=== PATIENT | female | born 1980 | race Caucasian/White ===

== ENCOUNTER → 2017-07-30 | Outpatient (CLI) | payer MEDICAID ==
[2017-07-30 13:11] LABS: Basophils # (A) 0.1 k/uL (0-0.2); Basophils % (A) 1 %; Eosinophils # (A) 0.1 k/uL (0-0.7); Eosinophils % (A) 2 %; HCT 39.9 % (34.0-46.0); HGB 12.5 gm/dL (11.4-16.0); Lymphocytes # (A) 2.2 k/uL (1.0-4.8); Lymphocytes % (A) 35 %; MCH 29.5 pg (25.0-35.0); MCHC 31.4 g/dL (31.0-37.0); MCV 93.9 fL (80.0-100.0); Mean Platelet Volume 6.8; Monocytes # (A) 0.4 k/uL (0-1.0); Monocytes % (A) 6 %; Neutrophils # (A) 3.4 k/uL (1.3-7.7); Neutrophils % (A) 54 %; Platelet Count 383 k/uL (150-450); RBC 4.26 m/uL (3.80-5.40); RDW 13.6 % (11.5-15.5); WBC 6.3 k/uL (3.8-10.6)
[2017-07-30 13:29] LABS: ALT 25 U/L (9-52); AST 19 U/L (14-36); Albumin 4.1 g/dL (3.5-5.0); Alkaline Phosphatase 76 U/L (38-126); Anion Gap 9 mmol/L; Blood Urea Nitrogen 8 mg/dL (7-17); Calcium 9.3 mg/dL (8.4-10.2); Carbon Dioxide 25 mmol/L (22-30); Chloride 107 mmol/L (98-107); Cholesterol 193 mg/dL (<200); Glucose 97 mg/dL (74-99); HDL Cholesterol 81 mg/dL (40-60); LDL Cholesterol,Calculated 95 mg/dL (0-99); Potassium 4.9 mmol/L (3.5-5.1); Sodium 141 mmol/L (137-145); Total Bilirubin 0.7 mg/dL (0.2-1.3); Total Protein 6.8 g/dL (6.3-8.2); Triglycerides 84 mg/dL (<150)
--- NOTE | 2017-07-30 13:35 | XR ---
EXAMINATION TYPE: XR chest 2V DATE OF EXAM: 07/30/2017 COMPARISON: NONE HISTORY: Chest pain TECHNIQUE: Frontal and lateral views of the chest are obtained. FINDINGS: Incidental note is made of an azygos lobe. There is no focal air space opacity, pleural eff usion, or pneumothorax seen. The cardiac silhouette size is within normal limits. The osseous stru ctures are intact. IMPRESSION: No acute cardiopulmonary process.
[2017-07-30 13:44] LABS: T4, Free (Free Thyroxine) 1.22 ng/dL (0.78-2.19)
[2017-07-30 22:55] LABS: Hemoglobin A1C 5.4 % (4.0-6.0)
== END | disposition home or self-care (01) ==
LOC: LABWHC1 12:11
PROVIDERS: ATTEND Family Medicine
DX: R07.89 Other chest pain (principal); E66.9 Obesity, unspecified; R00.2 Palpitations
CPT/HCPCS: 36415; 71046; 80053; 80061; 83036; 84439; 84443; 85025

== ENCOUNTER → 2017-08-11 | Outpatient (CLI) | payer OTHER ==
--- NOTE | 2017-08-11 16:42 | XR ---
EXAMINATION TYPE: XR foot complete RT DATE OF EXAM: 08/11/2017 CLINICAL HISTORY: Right foot pain after injury. TECHNIQUE: Frontal, lateral, and oblique images of the right foot are obtained. COMPARISON: None FINDINGS: There is no acute fracture/dislocation evident in the right foot. The joint spaces in the right foot appear within normal limits. The overlying soft tissue appears unremarkable. IMPRESSION: There is no acute fracture or dislocation in the right foot.
== END | disposition home or self-care (01) ==
LOC: LABWHC1 15:47
PROVIDERS: ATTEND Emergency Medicine
DX: S90.31XA Contusion of right foot, initial encounter (principal); N92.0 Excessive and frequent menstruation with regular cycle
CPT/HCPCS: 81025

== ENCOUNTER → 2018-02-16 | Outpatient (CLI) | payer OTHER ==
--- NOTE | 2018-02-16 17:42 | XR ---
EXAMINATION TYPE: XR tibia fibula RT DATE OF EXAM: 02/16/2018 COMPARISON: None HISTORY: Pain TECHNIQUE: 4 views FINDINGS: Tibia and fibula appear intact. I see no fracture nor dislocation. Joint spaces are normal. IMPRESSION: Negative right tibia and fibula exam.
== END | disposition home or self-care (01) ==
LOC: RADXRMAIN 17:20
PROVIDERS: ATTEND Emergency Medicine
DX: S80.11XA Contusion of right lower leg, initial encounter (principal)

== ENCOUNTER → 2018-02-19 | Outpatient (CLI) | payer OTHER ==
--- NOTE | 2018-02-19 15:53 | XR ---
EXAMINATION TYPE: XR knee complete RT DATE OF EXAM: 02/19/2018 CLINICAL HISTORY: Right knee pain and burning after injury 2 days ago. TECHNIQUE: Three views of the right knee are obtained. COMPARISON: Right leg x-ray from 3 days ago. FINDINGS: There is no acute fracture/dislocation evident in right knee. The tri-compartment joint s paces appear within normal limits. The overlying soft tissue appears unremarkable. IMPRESSION: There is no acute fracture or dislocation in the right knee.
== END ==
LOC: RADXRMAIN 15:32
PROVIDERS: ATTEND Emergency Medicine
DX: S80.11XD Contusion of right lower leg, subsequent encounter (principal)

== ENCOUNTER → 2018-02-27 | Outpatient (CLI) | payer OTHER ==
--- NOTE | 2018-02-27 13:02 | XR ---
EXAMINATION TYPE: XR knee complete RT DATE OF EXAM: 02/27/2018 CLINICAL HISTORY: Right knee pain and burning for one week TECHNIQUE: Three views of the right knee are obtained. COMPARISON: None. FINDINGS: There is no acute fracture/dislocation evident in right knee. The tri-compartment joint s paces appear within normal limits. The overlying soft tissue appears unremarkable. IMPRESSION: There is no acute fracture or dislocation in the right knee.
== END ==
LOC: RADXRMAIN 12:33
PROVIDERS: ATTEND Emergency Medicine
DX: S80.11XD Contusion of right lower leg, subsequent encounter (principal)

== ENCOUNTER → 2018-03-23 | Outpatient (CLI) | payer OTHER ==
--- NOTE | 2018-03-23 22:44 | MR ---
EXAMINATION TYPE: MR knee RT wo con DATE OF EXAM: 03/23/2018 COMPARISON: Plain film 02/27/2018 HISTORY: Rt knee pain TECHNIQUE: Multiplanar, multisequence imaging of the right knee is performed without IV contrast. FINDINGS: MEDIAL MENISCUS: Anterior and posterior horns are intact without tear. LATERAL MENISCUS: Anterior and posterior horns are intact without tear. CRUCIATE LIGAMENTS: The anterior and posterior cruciate ligaments are intact and unremarkable. COLLATERAL LIGAMENTS: The medial collateral ligament and lateral collateral ligament complex are inta ct and unremarkable. EXTENSOR MECHANISM: Visualized quadriceps and patellar tendons are intact. EFFUSION: No significant suprapatellar joint effusion. POPLITEAL CYST: No popliteal/davis cyst. TRICOMPARTMENT SPACES: Maintained CARTILAGE: Normal BONE MARROW SIGNAL: No focal abnormal marrow signal is appreciated. OTHER: No additional significant abnormality is appreciated. IMPRESSION: No evident internal derangement.
== END | disposition home or self-care (01) ==
LOC: RADMRIMAIN 21:22
PROVIDERS: ATTEND Emergency Medicine
DX: S80.11XD Contusion of right lower leg, subsequent encounter (principal); S81.801D Unspecified open wound, right lower leg, subsequent encounter

== ENCOUNTER → 2020-01-26 | Outpatient (CLI) | payer SELFPAY ==
[2020-01-26 16:32] VITALS: BP 130/79; PULSE 80; RESP 16; TEMP 98.5
--- NOTE | 2020-01-26 16:41 | P.GSHP ---
History of Present Illness H&P Date: 01/26/20 Chief Complaint: abnormal lesion left breast UOQ don ultrasound Arabella is a 39 year old white female seen in consultation for Dr. Carbajal. She noted a mass in her left breast in the upper outer quadrant approximately a month ago. This has fluctuated in size with her menstrual period. It is tender. She has not noted any other lumps masses or nodules. She had an ultrasound of her left breast performed on [id number]. This revealed a 2.7 x 3.6 cm irregular lesion in the upper outer quadrant area of the left breast. Additionally at the 1 o'clock position there was a 0.7 cm lesion. A second lesion at 1:00 which was 1.5 x 0.9 cm in size was also noted the 2 lesions at 1:00 was felt to most likely represent cyst. The lesion at 2:00 was felt it may be a complex cyst or solid lesion and attempted aspiration or biopsy was recommended. The patient denies any nipple discharge or skin changes. No nipple discharge or skin changes of concern. She does not complain of any recent trauma or infection in the breast. Caffeine: 2 cups of coffee per day Nicotine: Negative Theophylline: rare Family history: Negative Hormonal history: Menarche: 10 G0 periods irregular/ last period 3 weeks ago BCP: to regulate periods, less than 1 year hormones: none Surgical history: Negative Medical history: afib/v tach periodic Social History: Nicotine: Negative Alcohol: Negative Drugs: Negative - Constitutional Constitutional: Denies chills, Denies fever - EENT Eyes: denies blurred vision, denies pain Ears: deny: decreased hearing, tinnitus Ears, nose, mouth and throat: Denies headache, Denies sore throat - Breasts Breasts: bilateral: as per HPI - Cardiovascular Comment: atrial fib/ v tach intermittent Cardiovascular: Reports shortness of breath, Denies chest pain - Respiratory Respiratory: Denies cough, Denies 7 - Gastrointestinal Gastrointestinal: Reports diarrhea, Denies abdominal pain, Denies nausea, Denies vomiting - Genitourinary (Female) Comment: UTI in the past - Menstruation Menstruation: Reports cycle variable - Musculoskeletal Musculoskeletal: Denies myalgias - Integumentary Integumentary: Denies pruritus, Denies rash - Neurological Neurological: Denies numbness, Denies weakness - Psychiatric Psychiatric: Reports anxiety - Endocrine Endocrine: Reports fatigue, Reports weight change - Hematologic/Lymphatic Comment: none - Allergic/Immunologic Allergic/Immunologic: Reports seasonal allergies Surgical - Exam BMI 33.2 - General well developed, well nourished, no distress, obese - Eyes normal ocular movement - ENT no hearing loss, no congestion - Neck no masses, trachea midline - Respiratory normal respiratory effort, clear to auscultation - Cardiovascular Rhythm: regular Heart Sounds: normal: S1, S2 - Abdomen Abdomen: soft, non tender, no guarding, no rigid, no rebound - Integumentary normal turgor - Neurologic no disoriented, no combative - Musculoskeletal normal gait, normal posture - Psychiatric oriented to time, oriented to person, oriented to place, speech is normal, memory intact breast exam: BRA: 38C inspection: bilateral grade 1 ptosis Patient: Right breast: Multi-positional exam fibrocystic changes, no dominant masses or nodules of concern, dense breast tissue Right axilla: No adenopathy of concern Left breast: Multi-positional exam fibrocystic changes, no dominant masses or nodules of concern, fibrocystic changes Left axilla: No adenopathy of concern Results Ultrasound results reviewed Assessment and Plan Assessment: Impression: 1. Abnormal left breast ultrasound 2. Patient concern about postoperative change in the left breast which has largely resolved 3. Fibrocystic breast changes 4. Anxiety 5. History of atrial fibrillation/V. tach Plan: 1. Bilateral mammogram 2. Repeat left breast ultrasound of lesion of concern persist in the left breast upper outer quadrant ultrasound-guided core aspiration versus biopsy 3. Consider medical clearance clearance prior to biopsy CC: Dr. Carbajal encounter 30 minutes, > 50% of time in planning and counselling
== END | disposition home or self-care (01) ==
LOC: MERGE 13:40 → WWCWWP 16:13
PROVIDERS: ATTEND Surgery
DX: Z53.9 Procedure and treatment not carried out, unspecified reason (principal)

== ENCOUNTER → 2020-02-08 | Outpatient (CLI) | payer OTHER ==
--- NOTE | 2020-02-08 14:16 | MM ---
Reason for exam: clinical finding. Indicated problem(s): lump or thickening in the left breast. Physical Findings: Nurse did not find any significant physical abnormalities on exam. MG 3D Diag Mammo W/Cad BREANA Bilateral CC and MLO view(s) were taken. The breast tissue is extremely dense which could obscure a lesion on mammography. Finding: There is a 5 mm equal density (isodense) mass in the upper outer quadrant of the left breast. These results were verbally communicated with the patient and result sheet given to the patient on 02/08/20. ASSESSMENT: Incomplete: need additional imaging evaluation, BI-RAD 0 RECOMMENDATION: Ultrasound of the left breast.
--- NOTE | 2020-02-08 14:18 | USB ---
Reason for exam: additional evaluation requested from abnormal screening. US Breast LT Left complete breast ultrasound includes all four quadrants, the retroareolar region and axilla. Finding demonstrates three cystic lesions measuring 0.7 x 0.5 x 0.8cm at 2 o'clock, 1.3 x 0.7 x 1.2cm at 2 o'clock and 1.8 x 1.0 x 2.2cm at 3 o'clock. These results were verbally communicated with the patient and result sheet given to the patient on 02/08/20. ASSESSMENT: Probably benign, BI-RAD 3 RECOMMENDATION: Follow-up diagnostic mammogram and ultrasound of the left breast in 6 months.
== END | disposition home or self-care (01) ==
LOC: RADMAMWWP 13:02
PROVIDERS: ATTEND Surgery
DX: N63.21 Unspecified lump in the left breast, upper outer quadrant (principal)
CPT/HCPCS: 77066; 76641; G0279; 77062

== ENCOUNTER → 2020-08-10 | Outpatient (CLI) | payer OTHER ==
[2020-08-10 12:51] VITALS: BP 122/87; PULSE 85; RESP 18; TEMP 98.9
--- NOTE | 2020-08-10 13:10 | P.PN ---
Subjective Progress Note Date: 08/10/20 Principal diagnosis: Fibrocystic breast changes Arabella is a 39 year old white female seen in consultation for Dr. Carbajal in January,.. She had noted a mass in her left breast in the upper outer quadrant approximately a month prior. This had fluctuated in size with her menstrual period. It was tender. She had not noted any other lumps masses or nodules. She had an ultrasound of her left breast performed on . This revealed a 2.7 x 3.6 cm irregular lesion in the upper outer quadrant area of the left breast. Additionally at the 1 o'clock position there was a 0.7 cm lesion. A second lesion at 1:00 which was 1.5 x 0.9 cm in size was also noted the 2 lesi ons at 1:00 was felt to most likely represent cyst. The lesion at 2:00 was felt it may be a complex cyst or solid lesion and attempted aspiration or biopsy was recommended. Patient had a bilateral mammogram performed on . This was felt to be incomplete there was a 5 mm equal density mass in the upper quadrant of the left breast and ultrasound was recommended. Repeat ultrasound of the left breast was performed and . This revealed 3 cystic lesions 2 at 2:00 and one at 3:00. The recommendation at that time was for repeat left breast mammogram and ultrasound in 6 months. The aspiration was therefore put on hold. The patient denies any nipple discharge or skin changes. No nipple discharge or skin changes of concern. She does not complain of any recent trauma or infection in the breast. Caffeine: 2 cups of coffee per day Nicotine: Negative chocolate: rare Family history: Negative Hormonal history: Menarche: 10 G0 periods irregular/ last period about 1 month ago BCP: to regulate periods, less than 1 year hormones: none Surgical history: Negative Medical history: afib/v tach periodic anxiety Social History: Nicotine: Negative Alcohol: Negative Drugs: Negative - Constitutional Constitutional: Denies chills, Denies fever - EENT Eyes: denies blurred vision, denies pain Ears: deny: decreased hearing, tinnitus Ears, nose, mouth and throat: Denies headache, Denies sore throat - Breasts Breasts: bilateral: as per HPI - Cardiovascular Comment: atrial fib/ v tach intermittent Cardiovascular: Reports shortness of breath, Denies chest pain - Respiratory Respiratory: Denies cough, - Gastrointestinal Gastrointestinal: Reports diarrhea, Denies abdominal pain, Denies nausea, Denies vomiting - Genitourinary (Female) Comment: UTI in the past - Menstruation Menstruation: Reports cycle variable - Musculoskeletal Musculoskeletal: Denies myalgias - Integumentary Integumentary: Denies pruritus, Denies rash - Neurological Neurological: Denies numbness, Denies weakness - Psychiatric Psychiatric: Reports anxiety - Endocrine Endocrine: Reports fatigue, Reports weight change gain - Hematologic/Lymphatic Comment: none - Allergic/Immunologic Allergic/Immunologic: Reports seasonal allergies Objective - Exam BMI 35 - Constitutional General appearance: Present: cooperative - EENT Eyes: Present: EOMI ENT: Present: hearing grossly normal - Neck Neck: Present: normal ROM - Respiratory Respiratory: bilateral: CTA - Cardiovascular Rhythm: regular Heart sounds: normal: S1, S2 - Integumentary Integumentary: Present: normal turgor - Musculoskeletal Musculoskeletal: Present: gait normal - Psychiatric Psychiatric: Present: A&O x's 3, appropriate affect, intact judgment & insight - Additional findings Additional findings: breast exam: BRA: 38C inspection: grade 1 ptosis bilateral palpation: right breast: multipositional exam no dominate masses or nodules of concern, I were cystic changes Right axilla: No adenopathy of concern Left breast: Positional exam no dominant masses or nodules of concern, fibrocystic changes, dry skin at the nipple areolar complex area different from the right side Left axilla: No adenopathy of concern Assessment and Plan Assessment: Impression: 1. Fibrocystic breast changes 2. Dry skin nipple areolar complex left breast 3. I have reviewed and discussed with her her mammogram and ultrasound reports from January 2020 4. A. fib/V. tach periodically Plan: 1. Left breast mammogram and ultrasound 2. Patient needs screening on the left nipple areolar complex and I will reevaluate this when she comes for her repeat left breast mammogram and ultrasound if this remains scaly would consider a skin biopsy to rule out Paget's disease 3. Probable perimenopausal, have discussed this with the patient CC: Dr. Carbajal Diagnoses: 1. Fibrocystic breast changes 2. Scaling of nipple areolar complex left breast Data reviewed: Review of results of mammogram and ultrasound order left breast mammogram and ultrasound
== END | disposition home or self-care (01) ==
LOC: WWCWWP 12:34
PROVIDERS: ATTEND Surgery
DX: N60.19 Diffuse cystic mastopathy of unspecified breast (principal)

== ENCOUNTER → 2020-08-24 | Outpatient (CLI) | payer OTHER ==
--- NOTE | 2020-08-24 11:58 | MM ---
Reason for exam: follow-up at short interval from prior study. Last mammogram was performed 7 months ago. Physical Findings: Nurse did not find any significant physical abnormalities on exam. MG 3D Diag Mammo W/Cad LT CC and MLO view(s) were taken of the left breast. Prior study comparison: February 08, 2020, bilateral MG 3d diag mammo w/cad BREANA. The breast tissue is heterogeneously dense. This may lower the sensitivity of mammography. No significant new findings when compared with previous films. These results were verbally communicated with the patient and result sheet given to the patient on 08/24/20. ASSESSMENT: Benign, BI-RAD 2 RECOMMENDATION: Routine screening mammogram of both breasts in 5 months. Back on schedule for January 2021
--- NOTE | 2020-08-24 12:00 | USB ---
Reason for exam: follow-up at short interval from prior study. US Breast Limited LT Left limited breast ultrasound including focal area of concern, retroareolar and axilla demonstrates a 7 x 4 x 8mm oval, cystic lesion at 1 o'clock, unchanged, a 7 x 4 x 7mm lobular, mixed lesion at 2 o'clock, smaller in size, short term follow up recommended and a 11 x 6 x 13mm oval, cystic lesion at 3 o'clock, smaller in size. These results were verbally communicated with the patient and result sheet given to the patient on 08/24/20. ASSESSMENT: Probably benign, BI-RAD 3 RECOMMENDATION: Ultrasound of the left breast in 3 months.
== END | disposition home or self-care (01) ==
LOC: RADMAMWWP 09:32
PROVIDERS: ATTEND Surgery
DX: R92.2 Inconclusive mammogram (principal)
CPT/HCPCS: 77065; 76642; G0279; 77061

== ENCOUNTER 2021-02-03 17:27 | Observation (INO) | payer OTHER ==
[2021-02-03] MEDS ORDERED: SODIUM CHLORIDE 0.9% 1,000 ML IV STA (18:42)
[2021-02-03 19:16] LABS: Basophils # (A) 0.1 k/uL (0-0.2); Basophils % (A) 0 %; Eosinophils # (A) 0.1 k/uL (0-0.7); Eosinophils % (A) 1 %; HCT 40.4 % (34.0-46.0); HGB 13.4 gm/dL (11.4-16.0); Lymphocytes % (A) 25 %; MCH 31.1 pg (25.0-35.0); MCHC 33.1 g/dL (31.0-37.0); MCV 93.9 fL (80.0-100.0); Mean Platelet Volume 7.4; Monocytes # (A) 0.5 k/uL (0-1.0); Monocytes % (A) 4 %; Neutrophils # (A) 8.3 k/uL (1.3-7.7); Neutrophils % (A) 69 %; Platelet Count 258 k/uL (150-450); RDW 13.7 % (11.5-15.5)
--- NOTE | 2021-02-03 19:24 | XR ---
EXAMINATION TYPE: XR chest 2V DATE OF EXAM: 02/03/2021 COMPARISON: 07/30/2017 HISTORY: Syncope TECHNIQUE: 2 views FINDINGS: Heart and mediastinum are normal. Lungs are clear. Diaphragm is normal. Bony thorax appears normal. IMPRESSION: Normal chest. No change.
[2021-02-03 19:27] LABS: ALT 28 U/L (4-34); AST 36 U/L (14-36); African American GFR (CKD) >90 (>60 ml/min/1.73 sqM); Albumin 4.3 g/dL (3.5-5.0); Alkaline Phosphatase 100 U/L (38-126); Anion Gap 8 mmol/L; Blood Urea Nitrogen 14 mg/dL (7-17); Calcium 9.1 mg/dL (8.4-10.2); Carbon Dioxide 22 mmol/L (22-30); Chloride 105 mmol/L (98-107); Glucose 151 mg/dL (74-99); Magnesium 1.9 mg/dL (1.6-2.3); Non-African American GFR(CKD) >90 (>60 ml/min/1.73 sqM); Sodium 135 mmol/L (137-145); Total Bilirubin 0.6 mg/dL (0.2-1.3); Total Protein 7.3 g/dL (6.3-8.2)
--- NOTE | 2021-02-03 19:28 | ED ---
General Adult HPI - General Chief complaint: Syncope Stated complaint: syncope Time Seen by Provider: 02/03/21 18:40 Source: patient Mode of arrival: EMS Limitations: no limitations - History of Present Illness Initial comments: Arabella a 40-year-old female who presents the ER today after an apparent syncopal episode. Patient and her were in the kitchen washing dishes dinner. Patient suddenly felt very short of breath and lightheaded. She sat down on the stool in the kitchen and then fell to the ground. does report she had some seizure-like activity she was incontinent of bladder. reports she seemed to be out and shaking for approximately 30 seconds, she woke up and opened her eyes for about 5 seconds and then it happened again. reports 5 episodes like this. She has no recall of this. EMS was contacted patient was awake and alert but somewhat confused upon EMS arrival. No headache no vision changes. No recent illness. I have a history of A. fib and has had episodes of nonsustained V. tach in the past. She does follow with electrophysiology Dr. Ayala who has her on no medications due to the intermittent nature of her A. fib. - Related Data Home Medications Medication Instructions Recorded Confirmed Escitalopram [Lexapro] 5 mg PO HS 02/03/21 02/03/21 Multivitamins, Thera [Multivitamin 1 tab PO HS 02/03/21 02/03/21 (formulary)] Allergies Allergy/AdvReac Type Severity Reaction Status Date / Time No Known Allergies Allergy Verified 02/03/21 20:41 Review of Systems ROS Statement: Those systems with pertinent positive or pertinent negative responses have been documented in the HPI. ROS Other: All systems not noted in ROS Statement are negative. Past Medical History Past Medical History: Atrial Fibrillation Additional Past Medical History / Comment(s): ventricular tachycardia; Left breast lump History of Any Multi-Drug Resistant Organisms: None Reported Past Surgical History: No Surgical Hx Reported Past Anesthesia/Blood Transfusion Reactions: No Reported Reaction Past Psychological History: Anxiety Smoking Status: Never smoker - Past Family History Father Family Medical History: No Reported History Mother Family Medical History: No Reported History General Exam - General Exam Comments Initial Comments: Physical Exam GENERAL: Patient is well-developed and well-nourished. Patient is nontoxic and well- hydrated and is in no distress. HENT: Normocephalic, Atraumatic. EYES: PERRL, EOMI PULMONARY: Unlabored respirations. No audible rales rhonchi or wheezing was noted. CARDIOVASCULAR: There is a regular rate and rhythm without any murmurs gallops or rubs. ABDOMEN: Soft and nontender with normal bowel sounds. SKIN: Skin is clear with no lesions or rashes and otherwise unremarkable. : Deferred NEUROLOGIC: Patient is alert and oriented x3. Moving all extremities spontaneously MUSCULOSKELETAL: Normal extremities with adequate strength and full range of motion. No lower extremity swelling or edema. No calf tenderness. PSYCHIATRIC: Normal psychiatric evaluation. Limitations: no limitations Course Vital Signs 02/03/21 02/03/21 17:36 21:48 Temperature 98.2 F 98.4 F Pulse Rate 76 Pulse Rate [ 60 Pulse Oximetery ] Respiratory 18 16 Rate Blood Pressure 135/79 Blood Pressure 144/81 [Right Arm] O2 Sat by Pulse 97 96 Oximetry EKG Findings - EKG Comments: EKG Findings:: EKG was obtained due to complaint of syncope EKG was obtained at 1800 rate is 72 rhythm is sinus there is a normal axis normal intervals Sirs no acute ST elevations or depressions no evidence of ischemia or infarction Medical Decision Making - Medical Decision Making Patient was seen and evaluated history is obtained from the patient 40-year-old female with a history of arrhythmias presenting after repeat a couple episodes at home today Labs EKG and imaging were unremarkable patient was noted to have some seizure- like activity or suspect that this was due to hypoperfusion of the brain resulting in seizure-like activity with syncope rather than actually having a true seizure. Patient's workup in the ER was unremarkable however given her cardiac history and history of sudden collapse I do suspect the patient had a non-perfusing arrhythmia and is not stable for discharge home at this time. Patient is agreeable to plan for admission for evaluation by cardiology. This plan was discussed with Selina Kinney of the [facility] hospitalist group. - Lab Data Result diagrams: 02/03/21 18:49 02/03/21 18:49 Lab Results 02/03/21 02/03/21 02/03/21 Range/Units 18:49 18:49 20:26 WBC 12.0 H (3.8-10.6) k/uL RBC 4.30 (3.80-5.40) m/uL Hgb 13.4 (11.4-16.0) gm/dL Hct 40.4 (34.0-46.0) % MCV 93.9 (80.0-100.0) fL MCH 31.1 (25.0-35.0) pg MCHC 33.1 (31.0-37.0) g/dL RDW 13.7 (11.5-15.5) % Plt Count 258 (150-450) k/uL MPV 7.4 Neutrophils % 69 % Lymphocytes % 25 % Monocytes % 4 % Eosinophils % 1 % Basophils % 0 % Neutrophils # 8.3 H (1.3-7.7) k/uL Lymphocytes # 3.0 (1.0-4.8) k/uL Monocytes # 0.5 (0-1.0) k/uL Eosinophils # 0.1 (0-0.7) k/uL Basophils # 0.1 (0-0.2) k/uL PT 9.7 (9.0-12.0) sec INR 0.9 (<1.2) APTT 22.1 (22.0-30.0) sec Sodium 135 L (137-145) mmol/L Potassium 4.2 (3.5-5.1) mmol/L Chloride 105 (98-107) mmol/L Carbon Dioxide 22 (22-30) mmol/L Anion Gap 8 mmol/L BUN 14 (7-17) mg/dL Creatinine 0.76 (0.52-1.04) mg/dL Est GFR (CKD-EPI)AfAm >90 (>60 ml/min/1.73 sqM) Est GFR (CKD-EPI)NonAf >90 (>60 ml/min/1.73 sqM) Glucose 151 H (74-99) mg/dL Calcium 9.1 (8.4-10.2) mg/dL Magnesium 1.9 (1.6-2.3) mg/dL Total Bilirubin 0.6 (0.2-1.3) mg/dL AST 36 (14-36) U/L ALT 28 (4-34) U/L Alkaline Phosphatase 100 (38-126) U/L Troponin I (0.000-0.034) ng/mL Total Protein 7.3 (6.3-8.2) g/dL Albumin 4.3 (3.5-5.0) g/dL 02/03/21 Range/Units 20:26 WBC (3.8-10.6) k/uL RBC (3.80-5.40) m/uL Hgb (11.4-16.0) gm/dL Hct (34.0-46.0) % MCV (80.0-100.0) fL MCH (25.0-35.0) pg MCHC (31.0-37.0) g/dL RDW (11.5-15.5) % Plt Count (150-450) k/uL MPV Neutrophils % % Lymphocytes % % Monocytes % % Eosinophils % % Basophils % % Neutrophils # (1.3-7.7) k/uL Lymphocytes # (1.0-4.8) k/uL Monocytes # (0-1.0) k/uL Eosinophils # (0-0.7) k/uL Basophils # (0-0.2) k/uL PT (9.0-12.0) sec INR (<1.2) APTT (22.0-30.0) sec Sodium (137-145) mmol/L Potassium (3.5-5.1) mmol/L Chloride (98-107) mmol/L Carbon Dioxide (22-30) mmol/L Anion Gap mmol/L BUN (7-17) mg/dL Creatinine (0.52-1.04) mg/dL Est GFR (CKD-EPI)AfAm (>60 ml/min/1.73 sqM) Est GFR (CKD-EPI)NonAf (>60 ml/min/1.73 sqM) Glucose (74-99) mg/dL Calcium (8.4-10.2) mg/dL Magnesium (1.6-2.3) mg/dL Total Bilirubin (0.2-1.3) mg/dL AST (14-36) U/L ALT (4-34) U/L Alkaline Phosphatase (38-126) U/L Troponin I <0.012 (0.000-0.034) ng/mL Total Protein (6.3-8.2) g/dL Albumin (3.5-5.0) g/dL Disposition Clinical Impression: Syncope and collapse Disposition: ADMITTED IP TO THIS HOSP Condition: Stable Is patient prescribed a controlled substance at d/c from ED?: No
[2021-02-03 19:32] LABS: Potassium 4.2 mmol/L (3.5-5.1)
--- NOTE | 2021-02-03 20:20 | CT ---
EXAMINATION TYPE: CT brain wo con DATE OF EXAM: 02/03/2021 COMPARISON: Seizure HISTORY: seizures CT DLP: 1095.4 mGycm Automated exposure control for dose reduction was used. Ventricles and sulci appear normal. There is no mass effect nor midline shift. There is no sign of in tracranial hemorrhage. Calvarium is intact. There is no evidence of cerebral edema. IMPRESSION: Normal unenhanced head CT scan.
[2021-02-03] MEDS ORDERED: NALOXONE 0.4 MG/ML 1 ML VIAL IV PRN (20:53)
[2021-02-03 21:19] LABS: INR 0.9 (<1.2); Prothrombin Time 9.7 sec (9.0-12.0)
[2021-02-03 21:20] LABS: Partial Thromboplastin Time 22.1 sec (22.0-30.0)
[2021-02-03 22:00] LABS: Amorphous Sediment,Urine Rare /hpf; Appearance,Urine Cloudy (Clear); Bacteria,Urine Many /hpf; Bilirubin,Urine Negative (Negative); Blood,Urine Large (Negative); Color,Urine Light Red; Glucose,Urine (UA) Negative (Negative); Ketones,Urine Negative (Negative); Leukocyte Esterase,Urine Negative (Negative); Mucus,Urine Occasional /hpf; Nitrite,Urine Negative (Negative); Protein,Urine Trace (Negative); RBC,Urine >182 /hpf (0-5); Specific Gravity,Urine 1.018 (1.001-1.035); Squamous Epithelial Cell,Urine 6 /hpf (0-4); Urobilinogen,Urine <2.0 mg/dL (<2.0); WBC,Urine 14 /hpf (0-5)
[2021-02-04 10:27] LABS: Basophils # (A) 0.1 k/uL (0-0.2); Basophils % (A) 1 %; Eosinophils # (A) 0.2 k/uL (0-0.7); Eosinophils % (A) 2 %; HCT 38.9 % (34.0-46.0); HGB 12.3 gm/dL (11.4-16.0); Lymphocytes % (A) 32 %; MCHC 31.5 g/dL (31.0-37.0); MCV 95.3 fL (80.0-100.0); Mean Platelet Volume 6.8; Monocytes # (A) 0.5 k/uL (0-1.0); Monocytes % (A) 5 %; Neutrophils # (A) 5.4 k/uL (1.3-7.7); Neutrophils % (A) 58 %; Platelet Count 372 k/uL (150-450); RBC 4.09 m/uL (3.80-5.40); RDW 13.8 % (11.5-15.5); WBC 9.3 k/uL (3.8-10.6)
[2021-02-04 10:43] LABS: African American GFR (CKD) >90 (>60 ml/min/1.73 sqM); Anion Gap 8 mmol/L; Blood Urea Nitrogen 12 mg/dL (7-17); Calcium 8.8 mg/dL (8.4-10.2); Carbon Dioxide 22 mmol/L (22-30); Chloride 108 mmol/L (98-107); Glucose 106 mg/dL (74-99); Non-African American GFR(CKD) >90 (>60 ml/min/1.73 sqM); Potassium 4.2 mmol/L (3.5-5.1); Sodium 138 mmol/L (137-145)
--- NOTE | 2021-02-04 15:08 | P.CRDCN ---
History of Present Illness Consult date: 02/04/21 Consult reason: atrial fibrillation History of present illness: History of present illness: This is a 40-year-old female patient seen by Dr. Rivers in a couple years ago for palpitations and at that time she relates she was diagnosed with V. tach or atrial fibrillation but was low risk and did not require any further intervention. Patient states that she developed dizziness and shortness of breath while she was making dinner she sat down on a stool and the symptoms did not go away. She suddenly had a loss of consciousness and was convulsing. Her states that she had 5 episodes that lasted about 30 seconds and then patient did not have any memory of the incident but was completely awake and alert following. Patient did have loss of bladder control and became very sweaty. She denies having any chest pain. EKG was a sinus rhythm with no acute ST changes. Chest x-ray showed no acute cardiopulmonary process. CAT scan of t he brain was negative. Heart rate has been in the 60s and 70s, afebrile, blood pressure 135/79, pulse ox 97% on room air. Initial WBC 12.0 otherwise CBC was unremarkable. Blood sugar was 151 otherwise CMP was unremarkable. Troponin negative on 2 draws. Urinalysis positive for blood and possibly UTI. [place] virus PCR not detected. Patient placed in the observation unit and neurology has ordered MRI of the brain and EEG. Patient's symptoms have completely resolved. Patient denies history of seizure disorder. Review Of Systems: At the time of my evaluation: Constitutional: No fever, no chills. No weakness, fatigue or lethargy. EENT: No headache. No dizziness. Lungs: No shortness of breath, cough, no sputum production. No wheezing. Cardiovascular: No chest pain, no lower extremity edema. No palpitations. No paroxysmal nocturnal dyspnea. No orthopnea. No lightheadedness or dizziness. No syncopal episodes. Abdominal: No abdominal pain. No nausea, vomiting. No diarrhea. Musculoskeletal: No myalgias. No muscle weakness, no gait dysfunction, no frequent falls. Integumentary: No wounds. No rash. Neurologic: No aphasia. No facial droop. No change in mentation. No paralysis. Physical examination: Gen: This is a 40-year-old female. Patient's resting bed appears to be comfortable and in no acute distress. VS: Afebrile, heart rate 56, blood pressure 111/73, pulse ox 97% on room air HEENT: Head is atraumatic, normocephalic. Pupils equal, round. Sclerae is anicteric. NECK: Supple. No JVD. No lymphadenopathy. No thyromegaly. LUNGS: Clear to auscultation. No wheezes or rhonchi. No intercostal retractions. HEART: Regular rate and rhythm. No murmur. ABDOMEN: Soft. Bowel sounds are present. No masses. No tenderness. EXTREMITIES: No pedal edema. No calf tenderness. NEUROLOGICAL: Patient is awake, alert and oriented x3. Cranial nerves 2 through 12 are grossly intact. Assessment: Syncopal episode, appears to be seizure-like activity Self-reported history of V. tach and atrial fibrillation Plan: Continue cardiac monitoring Will obtain records from the office on Friday, doubt history of V. tach/A. fib Further recommendations to follow based upon clinical course Thank you kindly for this consultation. Nurse practitioner note has been reviewed, I agree with documented findings and plan of care. Patient was seen and examined. Past Medical History Past Medical History: Atrial Fibrillation Additional Past Medical History / Comment(s): ventricular tachycardia; Left breast lump History of Any Multi-Drug Resistant Organisms: None Reported Past Surgical History: No Surgical Hx Reported Past Anesthesia/Blood Transfusion Reactions: No Reported Reaction Past Psychological History: Anxiety Smoking Status: Never smoker - Past Family History Father Family Medical History: No Reported History Mother Family Medical History: No Reported History Medications and Allergies Home Medications Medication Instructions Recorded Confirmed Type Escitalopram [Lexapro] 5 mg PO HS 02/03/21 02/03/21 History Multivitamins, Thera [Multivitamin 1 tab PO HS 02/03/21 02/03/21 History (formulary)] Allergies Allergy/AdvReac Type Severity Reaction Status Date / Time No Known Allergies Allergy Verified 02/03/21 20:41 Physical Exam Vitals: Vital Signs Temp Pulse Pulse Resp BP BP Pulse Ox 02/04/21 07:00 97.7 F 56 L 18 111/73 97 02/04/21 02:00 60 02/04/21 01:56 98.6 F 65 17 118/72 97 02/03/21 22:00 18 02/03/21 21:48 98.4 F 60 16 144/81 96 02/03/21 17:36 98.2 F 76 18 135/79 97 Intake and Output 02/03/21 02/04/21 02/04/21 22:59 06:59 14:59 Intake Total 500 500 Balance 500 500 Intake: Oral 500 500 Other: Voiding Method Toilet Toilet # Voids 0 Weight 125.191 kg Results 02/04/21 09:11 02/04/21 09:36 Cardiac Enzymes 02/03/21 02/03/21 Range/Units 18:49 20:26 AST 36 (14-36) U/L Troponin I <0.012 (0.000-0.034) ng/mL Coagulation 02/03/21 Range/Units 20:26 PT 9.7 (9.0-12.0) sec APTT 22.1 (22.0-30.0) sec CBC 02/03/21 Range/Units 18:49 WBC 12.0 H (3.8-10.6) k/uL RBC 4.30 (3.80-5.40) m/uL Hgb 13.4 (11.4-16.0) gm/dL Hct 40.4 (34.0-46.0) % Plt Count 258 (150-450) k/uL Comprehensive Metabolic Panel 02/03/21 Range/Units 18:49 Sodium 135 L (137-145) mmol/L Potassium 4.2 (3.5-5.1) mmol/L Chloride 105 (98-107) mmol/L Carbon Dioxide 22 (22-30) mmol/L BUN 14 (7-17) mg/dL Creatinine 0.76 (0.52-1.04) mg/dL Glucose 151 H (74-99) mg/dL Calcium 9.1 (8.4-10.2) mg/dL AST 36 (14-36) U/L ALT 28 (4-34) U/L Alkaline Phosphatase 100 (38-126) U/L Total Protein 7.3 (6.3-8.2) g/dL Albumin 4.3 (3.5-5.0) g/dL Current Medications Generic Name Dose Route Start Last Admin Trade Name Freq PRN Reason Stop Dose Admin Naloxone HCl 0.2 mg 02/03/21 20:53 Naloxone 0.4 Mg/Ml 1 Ml Vial IV Q2M PRN Opioid Reversal Intake and Output 02/03/21 02/04/21 02/04/21 22:59 06:59 14:59 Intake Total 500 500 Balance 500 500 Intake: Oral 500 500 Other: Voiding Method Toilet Toilet # Voids 0 Weight 125.191 kg 02/03/21 18:49 02/03/21 18:49
[2021-02-04 17:16] LABS: C Reactive Protein 1.3 mg/dL (<1.0)
--- NOTE | 2021-02-04 18:39 | HP ---
HISTORY AND PHYSICAL DATE OF SERVICE: 02/04/2021 CHIEF COMPLAINTS: Syncope and seizure. HISTORY OF PRESENT ILLNESS: This 40-year-old woman with a past medical history of atrial fibrillation, history of left breast lump, anxiety, being followed by Dr. Carbajal in the outpatient setting, was also evaluated by Dr. yAala from the electrophysiology standpoint. Either ventricular tachycardia or atrial fibrillation was noted apparently. Yesterday the patient was her home and the patient was feeling sick and was about to pass out. The patient also had shortness of breath. Subsequently the patient did pass out and had seizure-like activity with injury to the tongue as well as urine incontinence. Patient came to [facility] and was admitted for further evaluation and treatment. There is no history of any fever, rigors or chills. No history of headache, loss of consciousness, seizures. PAST MEDICAL HISTORY: Atrial fibrillation, irregular heart rate, left breast lump. HOME MEDICATIONS: Multivitamins, Lexapro 5 mg daily. ALLERGIES: NONE. FAMILY HISTORY: No history of heart disease or strokes in the family. SOCIAL HISTORY: No history of smoking. Occasional alcohol intake. REVIEW OF SYSTEMS: ENT: No diminished hearing. No diminished vision. CARDIOVASCULAR SYSTEM: As mentioned earlier. RESPIRATORY SYSTEM: No cough, hemoptysis. GI: No nausea, vomiting, diarrhea. : No dysuria. NERVOUS SYSTEM: As mentioned earlier. ALLERGY/IMMUNOLOGY: No asthma or hay fever. MUSCULOSKELETAL: As mentioned earlier. HEMATOLOGY/ONCOLOGY: No history of anemia. ENDOCRINE: No history of diabetes or hypothyroidism. CONSTITUTIONAL: As mentioned earlier. DERMATOLOGY: Negative. RHEUMATOLOGY: Negative. PSYCHIATRY: As mentioned earlier. PHYSICAL EXAMINATION: Alert and oriented x3. Pulse 73, blood pressure 143/84. Minimal orthostatic changes. Respirations 20, temperature 98 degrees, pulse ox 98% on room air. HEENT: Conjunctivae normal. Oral mucosa moist. NECK: No jugular venous distention. No carotid bruit. No lymph node enlargement. CARDIOVASCULAR: S1, S2 muffled. RESPIRATION: Breath sounds diminished at the bases. No rhonchi. No crackles. ABDOMEN: Soft, nontender. No mass palpable. LEGS: No edema. No swelling. NERVOUS SYSTEM: Higher functions as mentioned earlier. Moves all 4 limbs. No focal motor or sensory deficit. LYMPHATICS: No lymph node palpable in neck, axillae or groin. SKIN: No ulcer, rash, bleeding. JOINTS: No active deforming arthropathy. LABS: WBC 12. Sodium 135. UA RBCs. ASSESSMENT: 1. Syncope, possible acute seizure disorder. 2. Rule out cardiac arrhythmia. 3. Hyponatremia. 4. Increased white count, possibly reactive. 5. History of atrial fibrillation with ventricular tachycardia. 6. History of left breast lump. 7. History of anxiety. 8. Obesity with body mass index of 37.8. 9. FULL CODE. RECOMMENDATIONS AND DISCUSSION: In this 40-year-old woman who presented with multiple complex medical issues, we will monitor the patient closely, continue the current medications, neuro checks, neurovascular evaluation, neurology evaluation. Cardiology also has been consulted. Basic labs. EEG, MRI. Prognosis guarded because of multiple complex medical issues. Further recommendations to follow. A copy of this dictation is being forwarded to Dr. Carbajal, who is the primary physician. MMTRUEL / RUTHN: [id number] /
--- NOTE | 2021-02-04 18:56 | P.CNNES ---
History of Present Illness Consult date: 02/04/21 Requesting physician: Adry Pahceco Reason for Consult: Syncopal episode History of Present Illness: This is a tele-neurology consultation performed today on 02/04/2021. Patient is a 40-year-old female came to the hospital by ambulance yesterday at 5:27 PM. 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 The family described a witnessed syncopal event with the m inute or 2 of unresponsiveness and loss of bladder control. Patient stated she remembers passing out, has a history of vasovagal syncope and chronic dehydration. Patient's skin was pink warm and diaphoretic. Patient does complain of being weak and not feeling right. Patient's blood pressure at the scene was 139/103, pulse is 78, respirations 16, saturation 95%. Repeat blood pressure was 143/102. Patient's vitals on arrival blood pressure 135/79, pulse is 76, temperature 98.2. Blood test shows normal CBC, PT/PTT, sodium was 135, but not normal. Hepatic panel, liver panel is normal. Troponin negative. UA is cloudy, large amount of blood and trace protein. [place] virus PCR negative. Computed tomography scan of the head showed no acute process. EKG with normal sinus rhythm. Nonspecific T-wave abnormality. Chest x-ray is normal. Patient's home medications include Lexapro 5 mg and multivitamins. Patient states that she has been feeling "out of sorts" for a week. She had a h eadache the day before. About a week before she had a migraine. She denied any dizziness, no shortness of breath, chest pain. Yesterday at around 5 PM she was standing in the kitchen when she felt slightly short of breath and dizzy. She felt she should sit down. She sat down in the stool. She still did not feel well, I asked her to take her down so she could lay down. However before he could take her, her muscle started convulsing, she started grinding teeth and she chipped her 3 teeth, and bit the very tip of the tongue. The convulsion lasted for 30 seconds. However about few seconds later, she had a second similar spell, again lasting for 30 seconds. She had these episodes back to back 5 times before her was able to place her down on the floor. Shortly after she came around and felt oriented although she was sweating a lot. Patient did lose control of urine with this spell. Patient denies any history of seizures, or any family history of epilepsy. The patient does have history of tendency of passing out when she was much younger. As a child, while having blood draw, she would pass out. Patient denies any trauma. She is in her periods at this time. She denies any tobacco or alcohol use. Review of Systems Patient feels tired, otherwise all review of systems are unremarkable. Past Medical History Past Medical History: Atrial Fibrillation Additional Past Medical History / Comment(s): ventricular tachycardia; Left breast lump History of Any Multi-Drug Resistant Organisms: None Reported Past Surgical History: No Surgical Hx Reported Past Anesthesia/Blood Transfusion Reactions: No Reported Reaction Past Psychological History: Anxiety Smoking Status: Never smoker - Past Family History Father Family Medical History: No Reported History Mother Family Medical History: No Reported History Medications and Allergies Home Medications Medication Instructions Recorded Confirmed Type Escitalopram [Lexapro] 5 mg PO HS 02/03/21 02/03/21 History Multivitamins, Thera [Multivitamin 1 tab PO HS 02/03/21 02/03/21 History (formulary)] Allergies Allergy/AdvReac Type Severity Reaction Status Date / Time No Known Allergies Allergy Verified 02/03/21 20:41 Physical Examination - Vital Signs Vital Signs: Vital Signs Temp Pulse Pulse Resp BP BP Pulse Ox 02/04/21 07:00 97.7 F 56 L 18 111/73 97 02/04/21 02:00 60 02/04/21 01:56 98.6 F 65 17 118/72 97 02/03/21 22:00 18 02/03/21 21:48 98.4 F 60 16 144/81 96 02/03/21 17:36 98.2 F 76 18 135/79 97 Intake and Output 02/03/21 02/04/21 02/04/21 22:59 06:59 14:59 Intake Total 500 500 Balance 500 500 Intake: Oral 500 500 Other: Voiding Method Toilet Toilet # Voids 0 Weight 125.191 kg Patient is a middle aged female, in no acute distress. Patient is alert awake oriented to time place and person. Speech and language functions are normal. Attention, concentration and fund of knowledge is a dequate. No aphasia or dysarthria. On cranial examination, pupils are round and reacting to light, visual ragland are full on confrontation, extraocular muscles are intact with no nystagmus. Face is symmetric, tongue protrudes to the midline. Palatal elevation and sensation normal, hearing and shoulder shrug normal, facial sensation normal. Shoulder shrug normal. On muscle strength testing, there is no pronator drift and the strength is normal in arms and legs distally and proximally. Deep tendon reflexes are 2 all over and plantars downgoing. Sensory to touch is equal with no neglect. Cerebellar function showed no ataxia for [id number] testing. No dysdiadochokinesia. Tone and bulk of muscles normal. Gait normal. On general examination, there is no carotid bruit or murmur, S1-S2 audible. Abdomen is soft nontender. Chest is clear. Peripheral pulses are present. There is trace peripheral edema. Results - Laboratory Findings CBC and BMP: 02/04/21 09:11 02/04/21 09:36 Abnormal Lab Findings: Abnormal Labs 02/03/21 02/03/21 02/03/21 18:49 18:49 21:22 WBC 12.0 H Neutrophils # 8.3 H Sodium 135 L Glucose 151 H Urine Appearance Cloudy H Urine Protein Trace H Urine Blood Large H Urine RBC >182 H Urine WBC 14 H Ur Squamous Epith Cells 6 H Amorphous Sediment Rare H Urine Bacteria Many H Urine Mucus Occasional H Assessment and Plan Assessment: * Probable convulsive syncope. Rule out arrhythmia. Seizure appears less likely. Patient initially had a syncopal spell (either vasovagal or arrhythmia), however as she stayed seated in the stool, which probably led to the second, third, fourth and the fifth convulsion back-to back, before she was able to be finally laid down on the floor, and shortly after she returned back to normal. * Reported previous history of atrial fibrillation in the past. Currently not on anticoagulation. * History of syncopal spells in her youth, related to blood draws. * Hypertension Plan: * Patient had possible seizure versus convulsive syncope. Appears more recurrent syncopal spells. * We will perform MRI of the brain to rule out any secondary causes of seizure, and an EEG. * Patient has been seen by cardiology, and an event monitor may be considered. * Dr. Stan Casas Will resume neurology service from the morning.
[2021-02-04] MEDS: MULTIVITAMINS, THERA 1 EACH TAB PO SCH (20:51)
[2021-02-04] MEDS: ESCITALOPRAM 10 MG TAB PO SCH (20:51)
[2021-02-04 22:15] LABS: Amphetamine Screen,Urine Not Detected (NotDetected); Barbiturate Screen,Urine Not Detected (NotDetected); Benzodiazepines Screen,Urine Not Detected (NotDetected); Cocaine Screen,Urine Not Detected (NotDetected); Methadone Screen, Urine Not Detected (NotDetected); Opiate Screen,Urine Not Detected (NotDetected); Oxycodone Screen, Urine Not Detected (NotDetected); Phencyclidine Screen,Urine Not Detected (NotDetected); Tricyclic Antidepressant,Urine Not Detected (NotDetected); Urn Cannabinoid Scrn Not Detected (NotDetected)
[2021-02-05 09:19] LABS: Basophils % (A) 1.2 %; Eosinophils # (A) 0.19 X 10*3/uL (0.04-0.35); Eosinophils % (A) 2.4 %; HCT 38.1 % (37.2-46.3); HGB 12.1 g/dL (12.0-15.0); Lymphocytes # (A) 3.21 X 10*3/uL (0.90-5.00); Lymphocytes % (A) 39.7 %; MCH 29.3 pg (27.0-32.0); MCHC 31.8 g/dL (32.0-37.0); MCV 92.3 fL (80.0-97.0); Mean Platelet Volume 9.3 fL (9.5-12.2); Monocytes # (A) 0.68 X 10*3/uL (0.20-1.00); Monocytes % (A) 8.4 %; Neutrophils # (A) 3.88 X 10*3/uL (1.80-7.70); Neutrophils % (A) 48.1 %; Platelet Count 392 X 10*3/uL (140-440); RBC 4.13 X 10*6/uL (4.10-5.20); RDW 14.6 % (11.5-14.5); WBC 8.08 X 10*3/uL (4.50-10.00)
[2021-02-05 09:37] LABS: African American GFR (CKD) 105.4 (60.0-200.0); Albumin 4.2 g/dL (3.80-4.90); Albumin/Globulin Ratio 1.83 (1.60-3.17); Anion Gap 13.4 mmol/L (4.00-12.00); BUN/Creat Ratio 16.25 Ratio (12.00-20.00); Calcium 8.9 mg/dL (8.7-10.3); Carbon Dioxide 20.6 mmol/L (21.6-31.8); Globulin 2.3 g/dL (1.6-3.3); Non-African American GFR(CKD) 90.9 (60.0-200.0); Potassium 4.4 mmol/L (3.5-5.5); Total Bilirubin 0.5 mg/dL (0.2-1.2); Total Protein 6.5 g/dL (6.2-8.2)
--- NOTE | 2021-02-05 10:35 | P.PN ---
Subjective History of present illness: This is a 40-year-old female patient seen by Dr. Rivers in a couple years ago for palpitations and at that time she relates she was diagnosed with V. tach or atrial fibrillation but was low risk and did not require any further intervention. Patient states that she developed dizziness and shortness of breath while she was making dinner she sat down on a stool and the symptoms did not go away. She suddenly had a loss of consciousness and was convulsing. Her states that she had 5 episodes that lasted about 30 seconds and then patient did not have any memory of the incident but was completely awake and ajmal rt following. Patient did have loss of bladder control and became very sweaty. She denies having any chest pain. EKG was a sinus rhythm with no acute ST changes. Chest x-ray showed no acute cardiopulmonary process. CAT scan of the brain was negative. Heart rate has been in the 60s and 70s, afebrile, blood pressure 135/79, pulse ox 97% on room air. Initial WBC 12.0 otherwise CBC was unremarkable. Blood sugar was 151 otherwise CMP was unremarkable. Troponin negative on 2 draws. Urinalysis positive for blood and possibly UTI. [place] virus PCR not detected. Patient placed in the observation unit and neurology has ordered MRI of the brain and EEG. Patient's symptoms have completely r esolved. Patient denies history of seizure disorder. 02/06 Patient seen and examined. Patient states she feels much better than yesterday. Denies any chest pain, pressure, shortness breath. Reviewed patient's presentation and it appears she had sudden onset of palpitations similar to prior A. fib, VT however associated lightheadedness and shortness of breath, has been noted her somewhat panting. Patient then had acute onset of loss of consciousness and then while still seated at kitchen table and being supported by her had seizure-like activity. Has been was unable to bring patient to the ground and patient had 4-5 further episodes of seizure-like activity. Patient was then able to be moved to the floor and no further episodes were noted. She was extremely diaphoretic as well as pale during these episodes. She does admit to her father having some sort of similar loss of consciousness and seizure-like activity and then had been discharged home and 2 days after being discharged at the age of 70. Also admits to some unknown "heart issues" in her father's father with him dying suddenly in his 40s of 50s. She denies any chest pain or pressure. Review Of Systems: At the time of my evaluation: Constitutional: No fever, no chills. No weakness, fatigue or lethargy. EENT: No headache. No dizziness. Lungs: No shortness of breath, cough, no sputum production. No wheezing. Cardiovascular: No chest pain, no lower extremity edema. No palpitations. No paroxysmal nocturnal dyspnea. No orthopnea. No lightheadedness or dizziness. No syncopal episodes. Abdominal: No abdominal pain. No nausea, vomiting. No diarrhea. Musculoskeletal: No myalgias. No muscle weakness, no gait dysfunction, no frequent falls. Integumentary: No wounds. No rash. Neurologic: No aphasia. No facial droop. No change in mentation. No paralysis. Physical examination: Gen: This is a 40-year-old female. Patient's resting bed appears to be comfortable and in no acute distress. VS: Reviewed HEENT: Head is atraumatic, normocephalic. Pupils equal, round. Sclerae is anicteric. NECK: Supple. No JVD. No lymphadenopathy. No thyromegaly. LUNGS: Clear to auscultation. No wheezes or rhonchi. No intercostal retractions. HEART: Regular rate and rhythm. No murmur. ABDOMEN: Soft. Bowel sounds are present. No masses. No tenderness. EXTREMITIES: No pedal edema. No calf tenderness. NEUROLOGICAL: Patient is awake, alert and oriented x3. Cranial nerves 2 through 12 are grossly intact. Assessment: Syncopal episode, likely primarily syncope with preceding episode of palpitations, SOB and lightheadedness, with hypoperfusional seizure like activity History of V. tach and atrial fibrillation per patient Family history of possible sudden cardiac in father and paternal grandfather Plan: We will review office records further as previous event monitor with apparent atrial fibrillation, ventricular tachycardia not available at this time. Check 2-D echo to evaluate left ventricular function. Patient's primary episode is concerning for cardiac source as well as some family history on her father's side concerning for sudden cardiac . Patient did have preceding palpitations lightheadedness diaphoresis and shortness breath concerning for an arrhythmogenic cause. We will check a stress echo to rule out any ischemic etiology however troponins normal and EKG without significant ischemic changes. Consult to electrophysiology for further recommendations regarding possible loop recorder versus EP study. Objective - Vital Signs Vital signs: Vital Signs Temp 97.8 F 02/05/21 07:00 Pulse 56 L 02/05/21 07:00 Resp 16 02/05/21 08:00 BP 112/72 02/05/21 07:00 Pulse Ox 96 02/05/21 07:00 Intake & Output 02/04/21 02/05/21 02/05/21 18:59 06:59 18:59 Intake Total 480 180 Balance 480 180 Intake: Oral 480 180 Other: Voiding Method Toilet Toilet Toilet # Voids 2 1 - Labs CBC & Chem 7: 02/05/21 05:22 02/05/21 05:22 Labs: Abnormal Lab Results - Last 24 Hours (Table) 02/04/21 02/04/21 02/04/21 Range/Units 09:36 09:36 09:36 MCHC (32.0-37.0) g/dL RDW (11.5-14.5) % MPV (9.5-12.2) fL ESR 25 H (0-20) mm/hr Chloride 108 H (98-107) mmol/L Carbon Dioxide (21.6-31.8) mmol/L Anion Gap (4.00-12.00) mmol/L Glucose 106 H (74-99) mg/dL C-Reactive Protein 1.3 H (<1.0) mg/dL 02/05/21 02/05/21 Range/Units 05:22 05:22 MCHC 31.8 L (32.0-37.0) g/dL RDW 14.6 H (11.5-14.5) % MPV 9.3 L (9.5-12.2) fL ESR (0-20) mm/hr Chloride (98-107) mmol/L Carbon Dioxide 20.6 L (21.6-31.8) mmol/L Anion Gap 13.40 H (4.00-12.00) mmol/L Glucose (74-99) mg/dL C-Reactive Protein (<1.0) mg/dL
[2021-02-05] MEDS ORDERED: DOBUTamine DRIP for NUC MED 500 MG in DEXTROSE/WATER 1 250ML.BAG IV PRN (12:23)
--- NOTE | 2021-02-05 15:32 | MR ---
EXAMINATION TYPE: MR brain wo/w con DATE OF EXAM: 02/05/2021 COMPARISON: CT brain 2 days ago HISTORY: Syncope vs seizure. TECHNIQUE: Multiplanar, multisequence images of the brain and brainstem is performed without and with IV contras t, utilizing 12.5 mL intravenous Gadavist . FINDINGS: Diffusion weighted images demonstrate no evidence of a recent infarct or other diffusion ab normality. There is no extra-axial fluid collection or significant white matter signal abnormality. The ventricular system and cisternal spaces are normal in size and appearance. The brain volume is age appropriate. T2 coronal weighted images show hippocampal gyri to appear symmetric and thought wit hin normal limits. Midline structures demonstrate normal morphology. The craniocervical junction appears within normal limits. Post contrast images demonstrate no abnormal enhancement. The dural venous sinuses appear pa tent. The visualized sinuses are clear and the globes are intact. IMPRESSION: Unremarkable study.
--- NOTE | 2021-02-05 15:48 | P.PN ---
Subjective Progress Note Date: 02/05/21 I am seeing the patient for the first time. Please refer to Dr. Virk's note for further details. She is accompanied by her significant other and No further syncopal episodes or seizure-like activities. Objective - Vital Signs Vital signs: Vital Signs Temp 97.8 F 02/05/21 07:00 Pulse 56 L 02/05/21 07:00 Resp 16 02/05/21 08:00 BP 112/72 02/05/21 07:00 Pulse Ox 96 02/05/21 07:00 Intake & Output 02/04/21 02/05/21 02/05/21 18:59 06:59 18:59 Intake Total 480 180 Balance 480 180 Intake: Oral 480 180 Other: Voiding Method Toilet Toilet Toilet # Voids 2 1 - Exam GENERAL: The patient is lying in bed and is not in acute distress. NEUROLOGICAL: Higher mental function: The patient is awake, alert, oriented to self, place and time. Patient is following commands. No aphasia and no neglect. Cranial nerves: The pupils are round, equal and reactive to light and accommodation. Visual ragland are full to confrontation throughout. Extraocular movement is intact no nystagmus is noted. Facial sensation is normal to touch throughout. The facial strength is normal throughout. Hearing is normal bilaterally to hand rub. Tongue is midline and moved [id number] without any difficulty. No dysarthria is noted. Shoulder shrug is normal bilaterally. Motor: The strength is 5 over 5 throughout. Normal tone and bulk. Cerebellum: Normal finger to nose heel to chin bilaterally. Sensation: Sensation is normal to touch throughout. Reflexes (right/left): 2+ throughout. Plantars are downgoing bilaterally. WORK-UP: Orthostatic is a supine blood pressure 131/82 with a heart rate is 61; sitting is 143/84 with a heart rate of 73 and standing is 141/86 with a heart rate of 84 orthostatics are negative. MRI of the brain with and without is reported as unremarkable study. - Labs CBC & Chem 7: 02/05/21 05:22 02/05/21 05:22 Labs: Abnormal Lab Results - Last 24 Hours (Table) 02/04/21 02/04/21 02/05/21 Range/Units 09:36 09:36 05:22 MCHC 31.8 L (32.0-37.0) g/dL RDW 14.6 H (11.5-14.5) % MPV 9.3 L (9.5-12.2) fL ESR 25 H (0-20) mm/hr Carbon Dioxide (21.6-31.8) mmol/L Anion Gap (4.00-12.00) mmol/L C-Reactive Protein 1.3 H (<1.0) mg/dL 02/05/21 Range/Units 05:22 MCHC (32.0-37.0) g/dL RDW (11.5-14.5) % MPV (9.5-12.2) fL ESR (0-20) mm/hr Carbon Dioxide 20.6 L (21.6-31.8) mmol/L Anion Gap 13.40 H (4.00-12.00) mmol/L C-Reactive Protein (<1.0) mg/dL Assessment and Plan Assessment: * Probable convulsive syncope. Rule out arrhythmia. Seizure appears less likely. Patient initially had a syncopal spell (either vasovagal or arrhythmia), however as she stayed seated in the stool, which probably led to the second, third, fourth and the fifth convulsion back-to back, before she was able to be finally laid down on the floor, and shortly after she returned back to normal. * Reported previous history of atrial fibrillation in the past. Currently not on anticoagulation. * History of syncopal spells in her youth, related to blood draws. * Hypertension Plan: * Pending routine EEG. I will not start the patient on antiepileptic drugs unlesss there is epileptiform discharges or seizure on the EEG. * Patient has been seen by cardiology, and an event monitor or loop recorder may be considered. * Patient is getting a stress echo and EP is consulted. * Patient was notified that if she continues to have these episodes down the line, would recommend and ambulatory EEG or possibly even consideration of epilepsy monitoring unit as an outpatient if all the cardiac workup is negative. * Patient was notified that per the [place] DMV because of these loss of consciousness/covulsion episodes with LOC, that the she is to avoid the driving for 6 month until no further episodes. To avoid heights, avoid using heavy machinery or swim unassisted. * Upon discharge the patient is to follow up with a intern architect as well as neurologist as an outpatient within 1-2 weeks. The plan is discussed with the patient and her signifcant other who is at bedside. UPDATE: Routine EEG: Normal. There are no focal slowing, epileptiform discharges or seizure on the EEG. Will follow-up sporadically. Stan Casas MD Neuro-Hospitalist Time with Patient: Less than 30
--- NOTE | 2021-02-05 17:38 | P.PN ---
Progress Note - Text Progress Note Date: 02/05/21 Interval history: This is a patient who is a prior history of V. tach and atrial fibrillation was seen by Dr. Krish Ayala in the past because of low risk no further intervention was done. Patient now presented with dizziness shortness of breath. While making dinner. Patient also had a loss of consciousness and was convulsing. She did about 5 episodes lasted about 30 seconds. Patient did not recall leg the episode. And she was alert for the episode. She was bladder incontinent and didn't perspire. No chest pain. February 05: Saw the patient this morning. at the bedside. Patient is pending MRI and EEG. No further episodes. Review of systems: Was done for constitutional, cardiovascular, GI, pulmonary. relevant finding as above Active Medications Escitalopram Oxalate (Escitalopram 10 Mg Tab) 5 mg PO [facility] Last Admin: 02/04/21 20:51 Dose: 5 mg Documented by: Multivitamins (Multivitamins, Thera 1 Each Tab) 1 each PO [facility] Last Admin: 02/04/21 20:51 Dose: 1 each Documented by: Naloxone HCl (Naloxone 0.4 Mg/Ml 1 Ml Vial) 0.2 mg IV Q2M PRN PRN Reason: Opioid Reversal On examination: VITAL SIGNS: 97.8, 56, 16, 112 x 72, 96% room air GENERAL APPEARANCE: BMI 37.4, laying in bed, comfortable, awake. HEENT: Normal external appearance of nose and ear. Oral cavity normal EYES: Pupils equal. Conjunctiva normal. NECK: JVD not raised. Mass not palpable. RESPIRATORY: Respiratory effort normal. Lungs clear to auscultation. CARDIOVASCULAR: First and second sounds normal. No edema. ABDOMEN: Soft. Liver and spleen not palpable. No tenderness. No mass palpable. PSYCHIATRY: Alert and oriented x3. Mood and affect normal. INVESTIGATIONS, reviewed in the clinical context: MRI brain with and without contrast: Unremarkable White count 8 hemoglobin 12.1 platelets 392 potassium 4.4 creatinine 0.8 Urine drug screen: Negative Coronavirus [PCR]: Not detected Rheumatoid factor VII DAMION screen negative EKG tracing: Sinus rhythm, nonspecific T-wave changes Chest x-ray: Negative Computed tomography scan of brain: Negative Assessment and plan: -New onset of convulsive episode with passing out incontinent loss of memory. Clinically appears to be epilepsy. MRI unremarkable. Pending EEG. -Obesity BMI 37.4 Weight loss measures and follow with PCP -Chronic anxiety On Lexapro 5 mg daily at bedtime -History of V. tach and atrial fibrillation was followed by Dr. Krish Ayala. Patient is pending 2-D echocardiogram. EEG pending. Continue current medications. Care was discussed with the patient and the .
--- NOTE | 2021-02-05 19:33 | EEG ---
ELECTROENCEPHALOGRAM REPORT DATE OF SERVICE: 02/05/2021. CLINICAL HISTORY: This is a 40-year-old woman with recurrent syncopal episodes. The video EEG is obtained to evaluate for seizure and epileptiform activity. RELEVANT MEDICATION: The patient is not on any antiepileptic drugs. EEG TYPE: A routine 21-channel EEG is performed with video using the 10/20 electrode placement system. DESCRIPTION: Wakefulness is obtained. During wakefulness, there is a posterior-dominant rhythm of low to moderate voltage that is well modulated, well sustained of 9-10 hertz activity. There is no physiological stage 2 sleep architecture seen. There is no focal slowing seen. Interictal and ictal is none. ACTIVATION PROCEDURE: Photic stimulation did evoke a posterior driving response at multiple flash frequencies, predominantly low. There is no abnormality during the photic stimulation. Hyperventilation is not performed. CLINICAL INTERPRETATION: This is a normal routine EEG. There are no focal slowing, epileptiform discharges or seizure on the EEG. Clinical correlation is recommended. LUIS M / JO ANN: [id number] / MTDD
[2021-02-05] MEDS: ESCITALOPRAM 10 MG TAB PO SCH (19:43)
[2021-02-05] MEDS: MULTIVITAMINS, THERA 1 EACH TAB PO SCH (19:43)
[2021-02-06 07:29] VITALS: PULSE 64
--- NOTE | 2021-02-06 07:56 | P.STRESS ---
- Stress Test Note Stress Test Results/Findings: Exam Performed: dobutamine stress echo Exam Date: 02/05/21 Reason for Exam: SYNCOPE Height: 6 ft Weight: 125.19 kg Protocol: DOBUTAMINE STRESS ECHO Stage: 5 Duration of Exercise: 12:00 INFUSION TIME Resting Heart Rate: 61 Resting Blood Pressure: 111/73 Maximum Achieved Heart Rate: 151 Maximum Achieved Blood Pressure: 169/84 85% PMHR: 151 100% PMHR: 178 METS: NA Technologist Comment: Stress Test Results/Findings: Patient underwent dobutamine stress echo with infusion of dobutamine into Stage 5 for a total of 12 minutes. Patient's maximum heart rate was 151 which represented 85% age-predicted maximum heart rate. Stress EKG portion: At baseline patient's EKG showed sinus rhythm, normal axis, no significant ST or T wave abnormalities. At peak dobutamine infusion, EKG showed nonspecific 0.[address] depressions in the inferior and lateral leads, rare PVC's. Stress echo portion: 2-D echocardiogram was performed in the parasternal long, personal short, apical 2 and apical four-chamber views at rest, low-dose, peak infusion and in recovery. At baseline, echocardiogram showed left ventricular ejection fraction 55% without wall motion abnormalities. With peak infusion, echocardiogram shows improvement in left ventricular ejection fraction, increase contractility, dec rease in left ventricular end systolic dimension without wall motion abnormalities consistent with a normal response to dobutamine. Conclusions: 1. Normal stress EKG and echo response to dobutamine infusion without any evidence of inducible ischemia.
--- NOTE | 2021-02-06 08:01 | ECHOF ---
Referral Reason:re: syncope MEASUREMENTS -------- HEIGHT: 182.9 cm WEIGHT: 124.3 kg BP: RVIDd: 3.6 cm (< 3.3) IVSd: 1.3 cm (0.6 - 1.1) LVIDd: 4.8 cm (3.9 - 5.3) LVPWd: 1.4 cm (0.6 - 1.1) IVSs: 1.8 cm LVIDs: 2.8 cm LVPWs: 1.8 cm LAESV Index (A-L): 22.29 ml/m Ao Diam: 2.9 cm (2.0 - 3.7) AV Cusp: 2.2 cm (1.5 - 2.6) LA Diam: 3.9 cm (2.7 - 3.8) MV EXCURSION: 17.896 mm (> 18.000) MV EF SLOPE: 101 mm/s (70 - 150) EPSS: 0.5 cm MV E Filiberto: 0.75 m/s MV DecT: 177 ms MV A Filiberto: 0.84 m/s MV E/A Ratio: 0.90 RAP: 5.00 mmHg RVSP: 28.28 mmHg FINDINGS -------- Sinus rhythm. This was a technically adequate study. The left ventricular size is normal. There is mild concentric left ventricular hypertrophy. Overa ll left ventricular systolic function is normal with, an EF between 55 - 60 %. The diastolic fillin g pattern is normal for the age of the patient 8.86. The right ventricle is mildly enlarged. Normal LA size by volume 22+/-6 ml/m2. The right atrial size is normal. Interatrial and interventricular septum intact. There is no evidence of aortic regurgitation. There is no evidence of aortic stenosis. There is trace mitral regurgitation. Mild tricuspid regurgitation present. There is no evidence of pulmonary hypertension. The right v entricular systolic pressure, as measured by Doppler, is 28.28mmHg. There is no pulmonic regurgitation present. The aortic root size is normal. IVC Not well visulized. There is no pericardial effusion. CONCLUSIONS -------- 1. The left ventricular size is normal. 2. There is mild concentric left ventricular hypertrophy. 3. Overall left ventricular systolic function is normal with, an EF between 55 - 60 %. 4. The diastolic filling pattern is normal for the age of the patient 8.86 5. The right ventricle is mildly enlarged. 6. There is trace mitral regurgitation. 7. Mild tricuspid regurgitation present. CHARGE HAND: Kacey Szymanski RDCS
[2021-02-06] MEDS ORDERED: SODIUM CHLORIDE 0.9% 1,000 ML IV SCH (09:00)
--- NOTE | 2021-02-06 12:00 | P.PN ---
Subjective This is a 40-year-old female patient seen by Dr. Ayala in 2018 for palpitations and at that time she underwent a 30 day event monitor which reveale d sinus rhythm with 2 separate runs of 34 beats of wide complex ventricular tachycardia, she also underwent a stress test which was normal and an echocardiogram with an normal LV function with mild myoxmatous mitral valve. She presents to the emergency department on 02/03/21. Patient states that she developed dizziness and shortness of breath while she was making dinner she sat down on a stool and the symptoms did not go away. She suddenly had a loss of consciousness and was convulsing. Her states that she had 5 episodes that lasted about 30 seconds and then patient did not have any memory of the incident but was completely awake and alert following. Patient did have loss of bladder control and became very sweaty. Patient was then able to be moved to the floor and no further episodes were noted. She was extremely diaphoretic as well as pale during these episodes. EMS was called and patient was brought to the emergency department. She does admit to her father having some sort of similar loss of consciousness and seizure-like activity and then had been discharged home and 2 days after being discharged at the age of 70. Also admits to some unknown "heart issues" in her father's father with him dying suddenly in his 40s of 50s. 02/06/21 Patient seen and examined at bedside, lying comfortably, no acute distress. She states she does feel better than yesterday. She was unable to tolerate the treadmill stress echo yesterday, had episode of dizziness and states she did not feel well. She underwent a dobutamine stress test on 02/05/2021 which was negative for inducible ischemia. echocardiogram revealed an EF 5560 percent, trace mitral regurgitation, mild tricuspid regurgitation. MRI of the brain no acute intracranial abnormality. EEG was also normal. Blood pressure 108/60, heart 64, afebrile, maintaining oxygen saturations on room air. GENERAL: Well-appearing, well-nourished and in no acute distress. NECK: Supple without JVD or thyromegaly. LUNGS: Breath sounds clear to auscultation bilaterally. Respiration equal and unlabored. No wheezes, rales or rhonchi. HEART: Regular rate and rhythm without murmurs, rubs or gallops. S1 and S2 heard. EXTREMITIES: Normal range of motion, no edema. No clubbing or cyanosis. Peripheral pulses intact. ASSESSMENT: -Syncopal episode, likely primarily syncope with preceding episode of palpitations, SOB and lightheadedness, with hypoperfusional seizure like activity -History of V. tach and atrial fibrillation per patient -Family history of possible sudden cardiac in father and paternal grandfather PLAN: -Consult to electrophysiology for further recommendations, recommending tilt table test at this time, which is scheduled today. -Plan for loop recorder placement as an outpatient. -From cardiology perspective, ok to discharge after tilit table test and follow up with Dr. Ayala in the office. Objective - Vital Signs Vital signs: Vital Signs Temp 97.9 F 02/06/21 07:00 Pulse 64 02/06/21 07:00 Resp 18 02/06/21 07:00 BP 108/68 02/06/21 07:00 Pulse Ox 93 L 02/06/21 09:28 Intake & Output 02/05/21 02/06/21 02/06/21 18:59 06:59 18:59 Intake Total 360 400 180 Balance 360 400 180 Weight 125.19 kg Intake: Oral 360 400 180 Other: Voiding Method Toilet Toilet # Voids 1 2 # Bowel Movements 0 - Labs CBC & Chem 7: 02/05/21 05:22 02/05/21 05:22
[2021-02-06] MEDS ORDERED: SODIUM CHLORIDE 0.9% 500 ML 500 ML IV ONE (14:00)
[2021-02-06] MEDS ORDERED: LIDOCAINE 1% INJ 10MG/ML (20 ML MDV) ONE ×2 (16:38→16:57)
[2021-02-06] MEDS ORDERED: IV FLUID CONTINUATION 400 ML IV ONE (16:44)
[2021-02-06] MEDS ORDERED: MIDAZOLAM 2 MG/2 ML VIAL IV ONE (16:52)
[2021-02-06] MEDS ORDERED: LIDOCAINE 1% INJ 10MG/ML (20 ML MDV) SQ ONE (16:58)
--- NOTE | 2021-02-06 17:28 | P.EPCON ---
Electrophysiology Consult - EP Consult Electrophysiology Consult: This is Dr. Ayala dictating an electrophysiology consult on this patient The patient was interviewed and examined IMPRESSION / ASSESSMENT: 1 episode of loss of consciousness while in the kitchen with brief clonic movements Past history of nonsustained atrial tachycardia Past history of nonsustained ventricular tachycardia Telemetry monitoring has not shown any arrhythmias His stress test is normal LV function is normal, RV may be mildly enlarged PLAN: Stress testing preferably exercise stress test However the patient could not exercise Ayan protocol and had to stop prematurely. Therefore stress test was switched to dobutamine stress echo Recommend tilt table test to evaluate for neurocardiogenic syncope In addition, implantation of a loop monitor since she has had supraventricular and ventricular nonsustained arrhythmias documented in the past I would look for a tachyarrhythmic trigger that could provoke vasovagal syncope My clinical impression is that she most likely neurocardiogenic syncope but given her history of nonsustained arrhythmias that I documented 3 years back, one should consider a tachyarrhythmia that provokes or triggers a neurocardiogenic response If she has frequent episodes of ventricular tachycardia unit in nonsustained I may consider a cardiac MRI in the future HPI Patient was in her kitchen washing dishes. She sat down in the stool after she felt a bit short of breath and lightheaded. Subsequently she passed out. She had some clonic movements but then immediately regained consciousness and was alert and oriented. However she tried to sit up again and she passed out once again and had a convulsive movements once again Her witnessed the episode She denies any prior chest discomfort and she denies any palpitations immediately preceding these episodes She barely had a prodrome other than a feeling of lightheadedness Recently started on Lexapro First 12-lead EKG showed sinus rhythm normal LA narrow canals normal ST segments normal QT interval no delta waves no epsilon waves normal ST segments in the precordial ROS: No fever chills or rigors, no cough, phlegm or expectoration, no nausea, vomiting or diarrhea, no hematuria, dysuria, no musculoskeletal complaints, no strokes or seizures, no skin lesions. EXAMINATION: Normal blood pressure Not orthostatic Heart rates in the 60s, afebrile Blood pressure 117/72 mmHg Normal heart sounds normal S1 normal S2 Breath sounds are clear no rhonchi no crackles Abdomen soft Extremity is warm no edema Patient is resting comfortably in bed REVIEW OF LABS, ECG & MEDICAL DATA Follow-up second EKG was also completely normal. Heart rate 59 beats Telemetry did not show any tachycardia or bradycardia arrhythmias 2-D echo showed preserved LV systolic function, RV was mildly enlarged BMI 37.4 At first an exercise stress echo was ordered. However the patient could not keep up with the elevation in the treadmill and could not walk No arrhythmias noted Subsequently a dobutamine stress echo was performed. Doing stress echo did not show any evidence for inducible ischemia
--- NOTE | 2021-02-06 17:32 | P.EPPROC ---
- EP Procedure Note Electrophysiology Procedure Note: Diagnosis 1 episode of syncope 12-lead EKG Normal sinus rhythm, normal cardiac intervals normal QT interval No delta waves no epsilon waves normal ST segments Tilt table test per protocol Baseline blood pressure 130/76. His mercury, Baseline heart rate 56 beats a minute Patient was tilted upright at an angle of 70 per protocol Within 10 minutes she started feeling off and then subsequently passed out as a blood pressure dropped to 51/29 mmHg When she is laid supine her blood pressure normalized to 127/70 mmHg Prior to the drop in blood pressure a peak heart rate was only 84 beats a minute Lowest heart rate 52 beats a minute Impression Vasodepressor response to upright tilting within 10-12 minutes Normal twelve-lead EKG
--- NOTE | 2021-02-06 17:36 | P.EPPROC ---
- EP Procedure Note Electrophysiology Procedure Note: Loop monitor implant Primary physicians: Dr. Carbajal Folder Stitcher Operator: Dr. Ayala Indication: Syncope, history of atrial and ventricular arrhythmias Patient was brought to the EP lab in a fasting state. Written informed consent was obtained prior to the procedure. The left pectoral area was prepped and draped per protocol. Intravenous antibiotic was administered preoperatively. A subcutaneous Loop monitor was implanted successfully and the wound was closed per protocol. The device was programmed to detect significant eh- arrhythmic and tachy-arrhythmic events, per protocol. Device and programming details: Syncope protocol Patient underwent EP procedure under conscious sedation/moderate sedation, monitoring of the level of consciousness and physiologic parameters including but not limited to vital signs and oxygenation. Patient tolerated the procedure well without any acute complications. Start time: 1656 Stop time: 1705
[2021-02-06 18:11] VITALS: BP 121/85; RESP 28; TEMP 97.8
--- NOTE | 2021-02-06 18:50 | P.PN ---
Subjective Progress Note Date: 02/06/21 Patient seen at bedside and she is accompanied with her sister and the patient has not had any further episodes of seizure-like activity or any syncopal episodes. Objective - Vital Signs Vital signs: Vital Signs Temp 97.8 F 02/06/21 18:10 Pulse 64 02/06/21 07:00 Resp 28 H 02/06/21 18:10 BP 121/85 02/06/21 18:10 Pulse Ox 93 L 02/06/21 09:28 Intake & Output 02/05/21 02/06/21 02/06/21 18:59 06:59 18:59 Intake Total 360 400 380 Balance 360 400 380 Weight 125.19 kg Intake: IV 200 Oral 360 400 180 Other: Voiding Method Toilet Toilet # Voids 1 2 2 # Bowel Movements 0 - Exam GENERAL: The patient is lying in bed and is not in acute distress. NEUROLOGICAL: Higher mental function: The patient is awake, alert, oriented to self, place and time. Patient is following commands. No aphasia and no neglect. Cranial nerves: The pupils are round, equal and reactive to light and accommodation. Visual ragland are full to confrontation throughout. Extraocular movement is intact no nystagmus is noted. Facial sensation is normal to touch throughout. The facial strength is normal throughout. Hearing is normal bilaterally to hand rub. Tongue is midline and moved [id number] without any difficulty. No dysarthria is noted. Shoulder shrug is normal bilaterally. Motor: The strength is 5 over 5 throughout. Normal tone and bulk. Cerebellum: Normal finger to nose heel to chin bilaterally. Sensation: Sensation is normal to touch throughout. Reflexes (right/left): 2+ throughout. Plantars are downgoing bilaterally. WORK-UP: Orthostatic is a supine blood pressure 131/82 with a heart rate is 61; sitting is 143/84 with a heart rate of 73 and standing is 141/86 with a heart rate of 84 orthostatics are negative. MRI of the brain with and without is reported as unremarkable study. Routine EEG: Normal. There are no focal slowing, epileptiform discharges or seizure on the EEG. - Labs CBC & Chem 7: 02/05/21 05:22 02/05/21 05:22 Assessment and Plan Assessment: * Probable convulsive syncope. Rule out arrhythmia. Seizure appears less likely but cannot be definitively excluded. Patient initially had a syncopal spell (either vasovagal or arrhythmia), however as she stayed seated in the stool, which probably led to the second, third, fourth and the fifth convulsion back-to back, before she was able to be finally laid down on the floor, and shortly after she returned back to normal. * Reported previous history of atrial fibrillation in the past. Currently not on anticoagulation. * History of syncopal spells in her youth, related to blood draws. * Hypertension Plan: * Patient has been seen by cardiology, and an event monitor or loop recorder may be considered. She is undergoing a loop recorder today. * Patient is getting a stress echo and EP is consulted. * Patient was notified that if she continues to have these episodes down the line, would recommend and ambulatory EEG or possibly even consideration of epilepsy monitoring unit as an outpatient if all the cardiac workup is negative. * Patient was notified that per the [place] DMV because of these loss of consciousness/covulsion episodes with LOC, that the she is to avoid the driving for 6 month until no further episodes. To avoid heights, avoid using heavy machinery or swim unassisted. * Upon discharge the patient is to follow up with a cable braider as well as neurologist as an outpatient within 1-2 weeks. The plan is discussed with the patient and her sister (who is at bedside) as well as primary team. There is no further neurological work-up. She is clear for discharge from neurological perspective. Stan Casas MD Neuro-Hospitalist Time with Patient: Less than 30
--- NOTE | 2021-02-06 22:07 | P.DS ---
Providers Date of admission: 02/03/21 20:55 Expected date of discharge: 02/06/21 Attending physician: Yury Uriostegui Consults: 02/03/21 20:54 Consult Physician Urgent Consulting Provider: Krish Ayala Consult Reason/Comments: hx afib, syncope Do you want consulting provider notified?: Yes 02/04/21 08:59 Consult Physician Routine Consulting Provider: Neurology Coverage Consult Reason/Comments: syncopal episode Do you want consulting provider notified?: Yes 02/05/21 09:23 Consult Physician Routine Consulting Provider: Krish Ayala Consult Reason/Comments: Syncope Do you want consulting provider notified?: Already Contacted Primary care physician: [facility] Course: Interval history: This is a patient who is a prior history of V. tach and atrial fibrillation was seen by Dr. Krish Ayala in the past because of low risk no further intervention was done. Patient now presented with dizziness shortness of breath. While making dinner. Patient also had a loss of consciousness and was convulsing. She did about 5 episodes lasted about 30 seconds. Patient did not recall leg the episode. And she was alert for the episode. She was bladder incontinent and didn't perspire. No chest pain. February 05: Saw the patient this morning. at the bedside. Patient is pending MRI and EEG. No further episodes. February 06: Patient's MRI and EEG were both unremarkable. Results were discussed with Dr. Casas from neurology. Seizure activity could not be entirely ruled out. It was decided not to put the patient on any AED at the present ti il. This was discussed with the patient. Late in the afternoon patient underwent a tilt table test. That did wrap turner to be positive [patient did drop her blood pressure significantly on being tilted.. Suggestive of neurocardiogenic syncope. Loop recorder was under discussed with the patient earlier today. Dr. Krish Ayala did proceed to do on given the prior history of arrhythmia. Patient also advised about not driving until further notice. Patient had a normal stress echocardiogram. Discussion and discharge planning more than 35 minutes Consultation: Dr. Krish Ayala from electrophysiology Dr. Bautista from cardiology Dr. Casas from neurology On examination: VITAL SIGNS: 97.9, 64, 18, 18/68, 97% on room air GENERAL APPEARANCE: , laying in bed, comfortable, awake. HEENT: Normal external appearance of nose and ear. Oral cavity normal EYES: Pupils equal. Conjunctiva normal. NECK: JVD not raised. Mass not palpable. RESPIRATORY: Respiratory effort normal. Lungs clear to auscultation. CARDIOVASCULAR: First and second sounds normal. No edema. ABDOMEN: Soft. Liver and spleen not palpable. No tenderness. No mass palpable. PSYCHIATRY: Alert and oriented x3. Mood and affect normal. INVESTIGATIONS, reviewed in the clinical context: Tilt table test: Positive for an suggestive of neurocardiogenic syncope Dobutamine stress echocardiogram: Negative for ischemia 2-D echocardiogram: EF 55-60% MRI brain with and without contrast: Unremarkable White count 8 hemoglobin 12.1 platelets 392 potassium 4.4 creatinine 0.8 Urine drug screen: Negative Coronavirus [PCR]: Not detected Rheumatoid factor : Negative DAMION screen negative EKG tracing: Sinus rhythm, nonspecific T-wave changes Chest x-ray: Negative Computed tomography scan of brain: Negative Assessment and plan: -neuro cardiogenic syncope. [Positive tilt table test] Loop recorder placed given a history of arrhythmia in the remote past. Patient to follow-up with cardiology. -Convulsive episodes secondary to neurocardiogenic syncope EEG negative for seizure activity -Obesity BMI 37.4 Weight loss measures and follow with PCP -Chronic anxiety On Lexapro 5 mg daily at bedtime -History of V. tach and atrial fibrillation was followed by Dr. Krish Ayala. Loop recorder placed Disposition: Home Patient Condition at Discharge: Stable Plan - Discharge Summary New Discharge Prescriptions: No Action Multivitamins, Thera [Multivitamin (formulary)] 1 tab PO HS Escitalopram [Lexapro] 5 mg PO HS Discharge Medication List Escitalopram [Lexapro] 5 mg PO HS 02/03/21 [History] Multivitamins, Thera [Multivitamin (formulary)] 1 tab PO HS 02/03/21 [History] Follow up Appointment(s)/Referral(s): Krish Ayala MD [STAFF PHYSICIAN] - 1 Week (assess for loop recorder) Bernarda Villasenor MD [REFERRING] - 1 Week Melvin Carbajal DO [Primary Care Provider] - 1-2 days Patient Instructions/Handouts: Syncope (GEN), Tilt Table Test (GEN), Cardiac Loop Recorder Insertion (GEN) Activity/Diet/Wound Care/Special Instructions: no driving for at least six months until cleared by neurology Discharge Disposition: HOME SELF-CARE
--- NOTE | 2021-02-08 13:06 | ECHOS ---
Stress Test Results/Findings: Exam Performed: dobutamine stress echo Exam Date: 02/05/21 Reason for Exam: SYNCOPE Height: 6 ft Weight: 125.19 kg Protocol: DOBUTAMINE STRESS ECHO Stage: 5 Duration of Exercise: 12:00 INFUSION TIME Resting Heart Rate: 61 Resting Blood Pressure: 111/73 Maximum Achieved Heart Rate: 151 Maximum Achieved Blood Pressure: 169/84 85% PMHR: 151 100% PMHR: 178 METS: NA Technologist Comment: Stress Test Results/Findings: Patient underwent dobutamine stress echo with infusion of dobutamine into Stage 5 for a total of 12 minutes. Patient's maximum heart rate was 151 which represented 85% age-predicted maximum heart rate. Stress EKG portion: At baseline patient's EKG showed sinus rhythm, normal axis, no significant ST or T wave abnormalities. At peak dobutamine infusion, EKG showed nonspecific 0.[address] depressions in the inferior and lateral leads, rare PVC's. Stress echo portion: 2-D echocardiogram was performed in the parasternal long, personal short, apical 2 and apical four-chamber views at rest, low-dose, peak infusion and in recovery. At baseline, echocardiogram showed left ventricular ejection fraction 55% without wall motion abnormalities. With peak infusion, echocardiogram shows improvement in left ventricular ejection fraction, increase contractility, decrease in left ventricular end systolic dimension without wall motion abnormalities consistent with a normal response to dobutamine. Conclusions: 1. Normal stress EKG and echo response to dobutamine infusion without any evidence of inducible ischemia. MTDD
== END 2021-02-06 19:36 | disposition home or self-care (01) ==
LOC: EC 17:27 → 6NMEDSUR 20:55
PROVIDERS: ADMIT Hospitalist; ATTEND Hospitalist
DX: R55 Syncope and collapse (principal); R56.9 Unspecified convulsions; E66.9 Obesity, unspecified; Z68.37 Body mass index [BMI] 37.0-37.9, adult; Z20.822 Contact with and (suspected) exposure to COVID-19; F41.9 Anxiety disorder, unspecified; I47.2 Ventricular tachycardia; I48.91 Unspecified atrial fibrillation; I10 Essential (primary) hypertension; R32 Unspecified urinary incontinence; W19.XXXA Unspecified fall, initial encounter; E87.1 Hypo-osmolality and hyponatremia; R00.2 Palpitations; N63.20 Unspecified lump in the left breast, unspecified quadrant; Z79.899 Other long term (current) drug therapy; Z71.3 Dietary counseling and surveillance
CPT/HCPCS: 99285; 96361 ×2; 96360; 36415; 94760; 95819; 93005; 93306; 93660; 80053 ×2; 80048; 85652; 84443; 83735; 84484 ×2; 85025 ×3; 85610; 85730; 86140; 86431; 81001; 86038; 80306; 87635; 71046; 70450; 70553; G0378 ×4; C8930; C1764; J2250; J1250; J0690; J2001; A9585; Q9950; 93351

== ENCOUNTER 2024-01-08 13:38 | Emergency (ER) | payer BC, OTHER ==
[2024-01-08 13:42] VITALS: RESP 18; TEMP 98.1
--- NOTE | 2024-01-08 14:24 | ED ---
Dizziness HPI - General Source: patient, RN notes reviewed Mode of arrival: ambulatory Limitations: no limitations <Avila Higginbotham - Last Filed: 01/08/24 14:23> <Donato Lopez - Last Filed: 01/08/24 17:50> - General Chief Complaint: Dizziness Stated Complaint: dizzy Time Seen by Provider: 01/08/24 13:57 - History of Present Illness Initial Comments: Quick [id number] female presents emergency department with chief complaint of dizziness, lightheadedness. Patient states that she has had symptoms in the past but usually passes she sits down eats or drinks something but states that this episode has not passed she states she feels like she is get a pass out. Patient states she sees because these episodes has a loop recorder. Denies any current chest pain. (Avila Higginbotham) Dictation was produced using [employer] dictation software. please excuse any grammatical, word or spelling errors. Chief Complaint: 43-year-old female with lightheadedness History of Present Illness: Patient is a 43-year-old female suppressed with lightheadedness. She has been evaluated extensively by cardiology for symptoms of presyncope. Patient states starting at 11 AM she started to feel lightheaded and dizzy. She denies that sensation folic the room spinning. She felt, faint felt like she had to sit down or all she would fall to the ground. Patient states that since being in emergency department symptoms are significantly improved. Patient currently wearing Holter monitor. States that she been dealing with the symptoms for the last several weeks. The ROS documented in this emergency department record has been reviewed and confirmed by me. Those systems with pertinent positive or negative responses have been documented in the HPI. All other systems are other negative and/or noncontributory. (Donato Lopez) - Related Data Home Medications Medication Instructions Recorded Confirmed Escitalopram [Lexapro] 5 mg PO HS 02/03/21 02/03/21 Multivitamins, Thera [Multivitamin 1 tab PO HS 02/03/21 02/03/21 (formulary)] Allergies Allergy/AdvReac Type Severity Reaction Status Date / Time No Known Allergies Allergy Verified 01/08/24 13:42 Review of Systems ROS Other: All systems not noted in ROS Statement are negative. <Avila Higginbotham - Last Filed: 01/08/24 14:23> ROS Other: All systems not noted in ROS Statement are negative. <Donato Lopez - Last Filed: 01/08/24 17:50> ROS Statement: Those systems with pertinent positive or pertinent negative responses have been documented in the HPI. Past Medical History Past Medical History: Atrial Fibrillation Additional Past Medical History / Comment(s): ventricular tachycardia; Left breast lump History of Any Multi-Drug Resistant Organisms: None Reported Past Surgical History: No Surgical Hx Reported Past Anesthesia/Blood Transfusion Reactions: No Reported Reaction Past Psychological History: Anxiety Smoking Status: Never smoker Past Alcohol Use History: None Reported Past Drug Use History: None Reported - Past Family History Father Family Medical History: No Reported History Mother Family Medical History: No Reported History <Avila Higginbotham - Last Filed: 01/08/24 14:23> General Exam Limitations: no limitations <Avila Higginbotham - Last Filed: 01/08/24 14:23> <Donato Lopez - Last Filed: 01/08/24 17:50> - General Exam Comments Initial Comments: Visual Physical Exam Vital signs reviewed General: Well-appearing, nontoxic, no acute distress. Head: Normocephalic, atraumatic Eyes: PERRLA, EOMI ENT: Airway patent Chest: Nonlabored breathing Skin: No visual rash, normal skin tone Neuro: Alert and oriented 3 Musculoskeletal: No gross abnormalities (Avila Higginbotham) PHYSICAL EXAM: General Impression: Alert and oriented x3, not in acute distress HEENT: Normocephalic atraumatic, extra-ocular movements intact, pupils equal and reactive to light bilaterally, mucous membranes moist. Cardiovascular: Heart regular rate and rhythm Chest: Able to complete full sentences, no retractions, no tachypnea Abdomen: abdomen soft, non-tender, non-distended, no organomegaly Musculoskeletal: Pulses present and equal in all extremities, no peripheral edema Motor: no focal deficits noted Neurological: CN II-XII grossly intact, no focal motor or sensory deficits noted Skin: Intact with no visualized rashes Psych: Normal affect and mood (Donato Lopez) Course Vital Signs 01/08/24 13:40 Temperature 98.1 F Pulse Rate 74 Respiratory 18 Rate Blood Pressure 137/79 O2 Sat by Pulse 97 Oximetry Medical Decision Making <Avila Higginbotham - Last Filed: 01/08/24 14:23> - Lab Data Result diagrams: 01/08/24 14:03 01/08/24 14:03 <Donato Lopez - Last Filed: 01/08/24 17:50> - Medical Decision Making I completed the quick note portion of this chart signed Avila Higginbotham PA-C (Avila Higginbotham) Was pt. sent in by a medical professional or institution (Dr. PA, MEAT GRINDER, urgent care, hospital, or penitentiary...) When possible be specific @ -No Did you speak to anyone other than the patient for history (EMS, parent, family, police, friend...)? What history was obtained from this source @ -No Did you review nursing and triage notes (agree or disagree)? Why? @ -I reviewed and agree with nursing and triage notes Were old charts reviewed (outside hosp., previous admission, EMS record, old EKG, old radiological studies, urgent care reports/EKG's, penitentiary records)? Report findings @ -No old charts were reviewed Differential Diagnosis (chest pain, altered mental status, abdominal pain women, abdominal pain men, vaginal bleeding, musculoskeletal, weakness, fever, dyspnea, syncope, headache, dizziness, GI bleed, back pain, seizure, CVA, palpatations, mental health)? @ -Differential Dizziness: Benign paroxysmal positional Vertigo, Meniere's disease, otitis media, acoustic neuroma, vertebrobasilar insufficiency, cerebellar stroke, encephalitis, hypovolemic, arrhythmia, coronary artery syndrome, anemia, this is not meant to be an all-inclusive list EKG interpreted by me (3pts min.). @ -None done X-rays interpreted by me (1pt min.). @ -None done CT interpreted by me (1pt min.). @ -None done U/S interpreted by me (1pt. min.). @ -None done What testing was considered but not performed or refused? (CT, X-rays, U/S, labs)? Why? @ -None What meds were considered but not given or refused? Why? @ -None Was smoking cessation discussed for >3mins.? @ -No Were there social determinants of health that impacted care today? How? (Homelessness, low income, unemployed, alcoholism, drug addiction, transportation, low edu. Level, literacy, decrease access to med. care, shelter, rehab)? @ -No Was there de-escalation of care discussed even if they declined (Discuss DNR or withdrawal of care, Hospice)? DNR status @ -No What co-morbidities impacted this encounter? (DM, HTN, Smoking, COPD, CAD, Cancer, CVA, ARF, Chemo, Hep., AIDS, mental health diagnosis, sleep apnea, morbid obesity)? @ -None Was patient admitted / discharged? Hospital course, mention meds given and route, prescriptions, significant lab abnormalities, going to OR and other pertinent info. @ -43-year-old female with acute on chronic dizziness. Vital signs stable. Physical examination is benign. Patient states she feels significantly better. She is given IV fluids. With her evaluation obtained. CBC, coag panel metabolic panel abdominal labs and troponin negative. Patient reevaluated after IV fluids with stable medical condition. Patient has no high risk features. She does not have any signs or symptoms of fever basilar insufficiency or post erior stroke. Did you discuss the management of the patient with other professionals (professionals i.e. , PA, MEAT GRINDER, lab, RT, psych nurse, nephrology social worker, estate tax examiner, teacher, helicopter officer, case hardener)? Give summary @ -No Was critical care preformed (if so, how long)? @ -No Undiagnosed new problem with uncertain prognosis? @ -No Drug Therapy requiring intensive monitoring for toxicity (Heparin, Nitro, Insulin, Cardizem)? @ -No Were any procedures done? @ -No Diagnosis/symptom? Acute, or Chronic, or Acute on Chronic? Uncomplicated (without systemic symptoms) or Complicated (systemic symptoms)? @ -Dizziness Side effects of treatment? @ -No Exacerbation, Progression, or Severe Exacerbation? @ -No Poses a threat to life or bodily function? How? (Chest pain, [place], [place], pneumonia, PE, COPD, DKA, ARF, appy, cholecystitis, CVA, Diverticulitis, Homicidal, Suicidal, threat to staff... and all critical care pts) @ -No (Donato Lopez) - Lab Data Lab Results 01/08/24 01/08/24 01/08/24 Range/Units 14:03 14:03 14:03 WBC 8.6 (3.8-10.6) k/uL RBC 4.18 (3.80-5.40) m/uL Hgb 12.7 (11.4-16.0) gm/dL Hct 39.4 (34.0-46.0) % MCV 94.3 (80.0-100.0) fL MCH 30.4 (25.0-35.0) pg MCHC 32.2 (31.0-37.0) g/dL RDW 13.3 (11.5-15.5) % Plt Count 414 (150-450) k/uL MPV 6.9 Neutrophils % 56 % Lymphocytes % 33 % Monocytes % 6 % Eosinophils % 2 % Basophils % 1 % Neutrophils # 4.9 (1.3-7.7) k/uL Lymphocytes # 2.9 (1.0-4.8) k/uL Monocytes # 0.6 (0-1.0) k/uL Eosinophils # 0.1 (0-0.7) k/uL Basophils # 0.1 (0-0.2) k/uL PT 10.1 (10.0-12.5) sec INR 0.9 (<1.2) APTT 25.0 (22.0-30.0) sec Sodium 138 (137-145) mmol/L Potassium 4.1 (3.5-5.1) mmol/L Chloride 108 H (98-107) mmol/L Carbon Dioxide 22 (22-30) mmol/L Anion Gap 8 mmol/L BUN 12 (7-17) mg/dL Creatinine 0.69 (0.52-1.04) mg/dL Est GFR (CKD-EPI)AfAm >90 (>60 ml/min/1.73 sqM) Est GFR (CKD-EPI)NonAf >90 (>60 ml/min/1.73 sqM) Glucose 118 H (74-99) mg/dL Calcium 9.6 (8.4-10.2) mg/dL Total Bilirubin 0.4 (0.2-1.3) mg/dL AST 26 (14-36) U/L ALT 21 (4-34) U/L Alkaline Phosphatase 74 (38-126) U/L Troponin I (0.000-0.034) ng/mL Total Protein 7.0 (6.3-8.2) g/dL Albumin 4.4 (3.5-5.0) g/dL 01/08/24 Range/Units 14:03 WBC (3.8-10.6) k/uL RBC (3.80-5.40) m/uL Hgb (11.4-16.0) gm/dL Hct (34.0-46.0) % MCV (80.0-100.0) fL MCH (25.0-35.0) pg MCHC (31.0-37.0) g/dL RDW (11.5-15.5) % Plt Count (150-450) k/uL MPV Neutrophils % % Lymphocytes % % Monocytes % % Eosinophils % % Basophils % % Neutrophils # (1.3-7.7) k/uL Lymphocytes # (1.0-4.8) k/uL Monocytes # (0-1.0) k/uL Eosinophils # (0-0.7) k/uL Basophils # (0-0.2) k/uL PT (10.0-12.5) sec INR (<1.2) APTT (22.0-30.0) sec Sodium (137-145) mmol/L Potassium (3.5-5.1) mmol/L Chloride (98-107) mmol/L Carbon Dioxide (22-30) mmol/L Anion Gap mmol/L BUN (7-17) mg/dL Creatinine (0.52-1.04) mg/dL Est GFR (CKD-EPI)AfAm (>60 ml/min/1.73 sqM) Est GFR (CKD-EPI)NonAf (>60 ml/min/1.73 sqM) Glucose (74-99) mg/dL Calcium (8.4-10.2) mg/dL Total Bilirubin (0.2-1.3) mg/dL AST (14-36) U/L ALT (4-34) U/L Alkaline Phosphatase (38-126) U/L Troponin I <0.012 (0.000-0.034) ng/mL Total Protein (6.3-8.2) g/dL Albumin (3.5-5.0) g/dL Disposition <Avila Higginbotham - Last Filed: 01/08/24 14:23> Is patient prescribed a controlled substance at d/c from ED?: No Time of Disposition: 17:50 <Donato Lopez - Last Filed: 01/08/24 17:50> Clinical Impression: Dizziness Disposition: HOME SELF-CARE Condition: Good Instructions (If sedation given, give patient instructions): Dizziness (ED) Referrals: Melvin Carbajal DO [Primary Care Provider] - 1-2 days
[2024-01-08 14:52] LABS: Basophils # (A) 0.1 k/uL (0-0.2); Basophils % (A) 1 %; Eosinophils # (A) 0.1 k/uL (0-0.7); Eosinophils % (A) 2 %; HCT 39.4 % (34.0-46.0); HGB 12.7 gm/dL (11.4-16.0); Lymphocytes # (A) 2.9 k/uL (1.0-4.8); Lymphocytes % (A) 33 %; MCH 30.4 pg (25.0-35.0); MCHC 32.2 g/dL (31.0-37.0); MCV 94.3 fL (80.0-100.0); Mean Platelet Volume 6.9; Monocytes # (A) 0.6 k/uL (0-1.0); Monocytes % (A) 6 %; Neutrophils # (A) 4.9 k/uL (1.3-7.7); Neutrophils % (A) 56 %; Platelet Count 414 k/uL (150-450); RBC 4.18 m/uL (3.80-5.40); RDW 13.3 % (11.5-15.5); WBC 8.6 k/uL (3.8-10.6)
[2024-01-08 15:00] LABS: INR 0.9 (<1.2); Prothrombin Time 10.1 sec (10.0-12.5)
--- NOTE | 2024-01-08 15:03 | XR ---
EXAMINATION TYPE: XR chest 2V DATE OF EXAM: 01/08/2024 COMPARISON: 02/03/2021 HISTORY: 43-year-old female with dizziness TECHNIQUE: AP and lateral views FINDINGS: Heart upper limits of normal size, likely accentuated due to AP technique. Loop recorder device proje cts at the lower left paramedian anterior chest wall. Normal variant azygos fissure. No consolidation or pleural effusion. IMPRESSION: No acute cardiopulmonary process.
[2024-01-08 15:09] LABS: ALT 21 U/L (4-34); AST 26 U/L (14-36); African American GFR (CKD) >90 (>60 ml/min/1.73 sqM); Albumin 4.4 g/dL (3.5-5.0); Alkaline Phosphatase 74 U/L (38-126); Anion Gap 8 mmol/L; Blood Urea Nitrogen 12 mg/dL (7-17); Calcium 9.6 mg/dL (8.4-10.2); Carbon Dioxide 22 mmol/L (22-30); Chloride 108 mmol/L (98-107); Glucose 118 mg/dL (74-99); Non-African American GFR(CKD) >90 (>60 ml/min/1.73 sqM); Potassium 4.1 mmol/L (3.5-5.1); Sodium 138 mmol/L (137-145); Total Bilirubin 0.4 mg/dL (0.2-1.3)
[2024-01-08] MEDS: SODIUM CHLORIDE 0.9% 1,000 ML IV ONE (17:26)
[2024-01-08 18:07] VITALS: BP 142/89; PULSE 67
== END 2024-01-08 18:20 | disposition home or self-care (01) ==
LOC: EC 13:38
DX: R42 Dizziness and giddiness (principal)
CPT/HCPCS: 36415; 71046; 80053; 83735; 84484; 85025; 85610; 85730; 99284